=== PATIENT | female | born 1955 | race Caucasian/White ===

== ENCOUNTER 2019-12-16 10:43 | Outpatient (CLI) | payer MEDICARE, SELFPAY ==
--- NOTE | 2019-12-16 10:51 | XR_ITS ---
WS: [id number] PROCEDURE: XR chest 2V* [id number] CLINICAL INFORMATION: CURRENT SMOKER, ELEVATED WHITE BLOOD CELL COUNT COMPARISON: None. FINDINGS: Heart: Normal cardiac silhouette. Aortic calcification. Lungs: Lungs are clear. No consolidation or pleural fluid. No acute pulmonary infiltrates. Bones: Mild thoracic kyphosis. Mild thoracic curve. Osteopenia. XR/XR chest 2V* [id number] IMPRESSION: 1. Mild chronic emphysematous changes. No acute pulmonary infiltrates. 2. Mild thoracic curve with mild thoracic kyphosis. Osteopenia. 3. No acute chest findings.
== END 2019-12-16 10:44 | disposition home or self-care (01) ==
LOC: WPI 10:43
PROVIDERS: PCP Nurse Practitioner Family; Visit Provider Nurse Practitioner Family
DX: F17.200 Nicotine dependence, unspecified, uncomplicated (principal); D72.829 Elevated white blood cell count, unspecified; M85.89 Other specified disorders of bone density and structure, multiple sites
CPT/HCPCS: 71046

== ENCOUNTER 2020-01-01 08:25 | Day surgery (SDC) | payer MEDICARE, SELFPAY ==
[2019-12-30 14:47] VITALS: BMI 40.7
[2020-01-01 08:45] VITALS: BP 173/90; PULSE 77; RESP 18; TEMP 36.8; O2SAT 94
[2020-01-01] MEDS: sodium chloride 0.9% 1,000 ML 30 ML IV (08:57)
[2020-01-01 09:03] LABS: Glucose Point of Care 135 mg/dL (70-110)
--- NOTE | 2020-01-01 09:09 | W.PM.OPSUD ---
Surgery/Procedure H&P Update DATE OF PROCEDURE: January 01, 2020 DATE H&P PERFORMED: 12/16/19 H&P UPDATE INFORMATION: I have reviewed H&P completed within last 30 days, I have examined patient prior to procedure and No changes to prior documentation PREOP DIAGNOSIS: Screening colonoscopy PRIMARY INDICATION FOR PROCEDURE: The same PLANNED PROCEDURE: Operation Date: 01/01/20 09:30 Proposed Procedures p [id number]/Z12.11(Not Applicable) - Andrea Herrera MD
--- NOTE | 2020-01-01 09:13 | P.ANESASSM_ITS ---
Pre-Anesthetic Assessment Pre-Anesthetic Assessment: Height/Weight: Height 1.6 m Weight 104.326 kg Preop Diagnosis: Screening colonoscopy Proposed Procedure: Operation Date: 01/01/20 09:30 Proposed Procedures p [id number]/Z12.11(Not Applicable) - Andrea Herrera MD Was Beta Josie taken within 24 hours: N/A Last intake: Intake Last Liquid Date 12/31/19 Last Liquid Time 23:00 Last Solid Date 12/30/19 Last Solid Time 14:00 Social: Social History: Tobacco Exam: Pre-Anes Outpt Exam: alert, oriented x 3, clear to auscultation bilaterally and regular rate & rhythm Airway: Submandibular: WNL Cervical ROM: WNL MP: 2 Dentition: False History/ROS: No significant history except as noted and No significant compl aints Pulmonary: Pulmonary: None reported CV/HEM: CV/HEM: HTN : Comments: 1 functional kidney Hepatic: Hepatic: None reported GI: GI: None reported Metabolic: Metabolic: DM and Morbid obesity Musc/skel: Musc/skel: Lower Back Pain and OA/DJD Neuropsych: Neuropsych: None reported Anesthetic Plan: ASA status: 2 Anesthesia: MAC Meds/Allergies Current Medications: Current Medications Generic Name Dose Route Start Last Admin Trade Name Freq PRN Reason Stop Dose Admin Sodium Chloride 1,000 mls @ 30 ml s/hr 01/01/20 08:45 01/01/20 08:57 Sodium Chloride 0.9% IV 01/02/20 08:44 30 mls/hr .Q24H KITTY Administration PFSH Anesthesia PFSH: Medical History (Updated 12/16/19 @ 13:48 by Andrea Herrera MD) Anxiety Chronic neck and back pain Diabetes Hyperlipidemia Hypertension Insomnia Morbid obesity Surgical History H/O cystoscopy with kidney stone removal History of tonsillectomy Family History Father Cancer lung/brain Hypertension Denies family history of Anesthesia complication Bleeding disorder Social History Smoking and tobacco status: current every day smoker Alcohol intake: never Household members: spouse Marital status: Data Anesthesia Other Labs: Laboratory Results - last 48 hr 01/01/20 08:59 POC Glucose 135 Cardiac Studies: No Data to Display
--- NOTE | 2020-01-01 09:32 | SUR.OPER ---
clip placed at rectal polyp bx site
[2020-01-01 09:37] VITALS: BP 131/88; PULSE 68; RESP 16; TEMP 36.3; O2SAT 96
--- NOTE | 2020-01-01 09:40 | ANE.PACU2 ---
Inpatient post-anesthesia follow up: Airway intact: Yes Vital signs: Temperature Pulse Rate Respiratory Rate Blood Pressure Pulse Oximetry Oxygen Delivery Me thod Oxygen Flow Rate Fraction of Inspir ed Oxygen Hydration adequate: Yes Nausea and vomiting: No Mental status: Baseline
[2020-01-01 09:54] VITALS: BP 132/87; PULSE 66; RESP 18; O2SAT 94
== END 2020-01-01 10:15 | disposition home or self-care (01) ==
PROVIDERS: PCP Nurse Practitioner Family; Visit Provider Surgery
PROC: 0DJD8ZZ Inspection of Lower Intestinal Tract, Via Natural or Artificial Opening Endoscopic (ICD-10-PCS; CPT 45378; principal; 2020-01-01 09:30)
DX: Z12.11 Encounter for screening for malignant neoplasm of colon (principal); K62.1 Rectal polyp; I10 Essential (primary) hypertension; E11.9 Type 2 diabetes mellitus without complications; E66.01 Morbid (severe) obesity due to excess calories; Z68.41 Body mass index [BMI] 40.0-44.9, adult; M19.90 Unspecified osteoarthritis, unspecified site; E78.5 Hyperlipidemia, unspecified; F17.210 Nicotine dependence, cigarettes, uncomplicated
CPT/HCPCS: 12345; 36416; 45385; 82962; 88305; J2001; J2704; J7030

== ENCOUNTER 2020-01-09 13:53 | Outpatient (CLI) | payer MEDICARE, SELFPAY ==
--- NOTE | 2020-01-09 13:59 | MM_ITS ---
WS: [id number] BILATERAL SCREENING DIGITAL MAMMOGRAM WITH CAD HISTORY: SCREENING COMPARISON: None available. Bilateral CC and MLO views submitted. Computer aided detection analyzed. Breast composition: There are scattered areas of fibroglandular density. No suspicious masses, microc alcifications or architectural distortion. Benign round calcifications in the RIGHT breast. MM/[place] [id number] IMPRESSION: BI-RADS: 2-Benign FOLLOW UP: 1 Year Follow-up
== END 2020-01-09 13:54 | disposition home or self-care (01) ==
LOC: RADSHAW 13:57
PROVIDERS: PCP Nurse Practitioner Family; Visit Provider Nurse Practitioner Family
DX: Z12.31 Encounter for screening mammogram for malignant neoplasm of breast (principal)
CPT/HCPCS: 77067

== ENCOUNTER → 2020-02-26 06:27 | Day surgery (SDC) | payer MEDICARE, SELFPAY ==
[2020-02-24 13:44] VITALS: BMI 43.0
[2020-02-26 06:53] VITALS: BP 197/93; PULSE 82; RESP 18; TEMP 36.4; O2SAT 94
[2020-02-26] MEDS: sodium chloride 0.9% 1,000 ML 30 ML IV (06:55)
--- NOTE | 2020-02-26 06:56 | ANES.PREANE2 ---
Pre-Anesthetic Assessment Pre-Anesthetic Assessment: Height/Weight: Height 1.6 m Weight 110.223 kg Temp Pulse Resp BP Pulse Ox 97.6 F 82 18 197/93 94 02/26/20 06:53 02/26/20 06:53 02/26/20 06:53 02/26/20 06:53 02/26/20 06:53 Preop Diagnosis: Screening colonoscopy Proposed Procedure: Operation Date: 02/26/20 07:30 Proposed Procedures p Colonoscopy 23815 K63.5(Not Applicable) - Andrea Herrera MD Was Beta Josie taken within 24 hours: Yes Last intake: Intake Last Liquid Date 02/25/20 Last Liquid Time 23:30 Last Solid Date 02/24/20 Social: Social History: Tobacco and No alcohol Exam: Pre-Anes Outpt Exam: alert, oriented x 3, clear to auscultation bilaterally and regular rate & rhythm Airway: Submandibular: Other (Receeding mandible with limited TMD) Cervical ROM: WNL MP: 3 Additional comments: ec Pulmonary: Pulmonary: COPD and Cough CV/HEM: CV/HEM: HTN : : None reported Hepatic: Hepatic: None reported GI: GI: GERD Metabolic: Metabolic: DM Musc/skel: Musc/skel: None reported Neuropsych: Neuropsych: None reported Anesthetic Plan: ASA status: 3 Anesthesia: MAC Meds/Allergies Current Medications: Current Medications Generic Name Dose Route Start Last Admin Trade Name Freq PRN Reason Stop Dose Admin Sodium Chloride 1,000 mls @ 30 ml s/hr 02/26/20 06:45 02/26/20 06:55 Sodium Chloride 0.9% IV 02/27/20 06:44 30 mls/hr .Q24H KITTY Administration PFSH Anesthesia PFSH: Medical History Anxiety Chronic neck and back pain Diabetes Hyperlipidemia Hypertension Insomnia Morbid obesity Surgical History H/O cystoscopy with kidney stone removal History of tonsillectomy Family History Father Cancer lung/brain Hypertension Denies family history of Anesthesia complication Bleeding disorder Social History Smoking and tobacco status: current every day smoker Alcohol intake: never Household members: spouse Marital status: Data Anesthesia Cardiac Studies: No Data to Display
[2020-02-26 06:57] LABS: Glucose Point of Care 109 mg/dL (70-110)
--- NOTE | 2020-02-26 07:40 | P.HP_ITS ---
Same Day Surgery H&P Indication for Procedure/HPI DATE OF PROCEDURE: February 26, 2020 CHIEF COMPLAINT/INDICATIONFOR SURGICAL PROCEDURE: I am here for colonoscopy PREOP DIAGNOSIS: Screening colonoscopy PLANNED PROCEDRUE: Operation Date: 02/26/20 07:30 Proposed Procedures p Colonoscopy 40925 K63.5(Not Applicable) - Andrea Herrera MD This is a pleasant 64 years old female patient presented initially to my office for screening colonoscopy and we did a colonoscopy back in December yet the colon prep was suboptimal and smaller polyps could have been missed, patient was offered the option for a repeat colonoscopy and she decided to proceed accordingly ROS All systems have been reviewed negative except as per the above or per problem list Medications/Allergies* Home Medications Medication Instructions Recorded Confirmed Type acetaminophen 300 mg-codeine 60 mg 1 tab PO Q6H PRN 12/13/19 02/26/20 History tablet alprazolam 0.5 mg tablet 0.5 mg PO TID PRN 12/13/19 02/26/20 History carisoprodol 350 mg tablet 350 mg PO BID tab 12/13/19 02/26/20 History cholecalciferol (vitamin D3) 1,250 1 unit PO .weekly cap 12/13/19 02/26/20 History mcg (50,000 unit) capsule diltiazem HCl 360 mg 360 mg PO DAILY 12/13/19 02/26/20 History capsule,extended release 24 hr glipizide 5 mg tablet 5 mg PO BID 12/13/19 02/26/20 History insulin degludec 100 16 unit SUBCUT DIRECTED 12/13/19 02/26/20 History unit-liraglutide 3.6 mg/mL(3 mL) subcutaneous pen insulin degludec 100 unit/mL (3 40 unit SUBCUT DAILY ml 12/13/19 02/26/20 History mL) subcutaneous pen metformin 1,000 mg tablet 1,000 mg PO BID 12/13/19 02/26/20 History quinapril 40 mg tablet 40 mg PO DAILY 12/13/19 02/26/20 History simvastatin 40 mg tablet 40 mg PO DAILY 12/13/19 02/26/20 History zolpidem 10 mg tablet 10 mg PO ONCE PRN tab 12/13/19 02/26/20 History Allergies/Adverse Reactions Allergy/AdvReac Type Severity Reaction Status Date / Time No Known Allergies Allergy Verified 02/26/20 07:41 Current Medications: Generic Name Dose Route Start Last Admin Trade Name Rubenq PRN Reason Stop Dose Admin Sodium Chloride 1,000 mls @ 30 mls/hr 02/26/20 06:45 02/26/20 06:55 Sodium Chloride 0.9% IV 02/27/20 06:44 30 mls/hr .Q24H KITTY Administration Pertinent History/Comorbid Conditions* Medical History (Updated 01/01/20 @ 09:36 by Andrea Herrera MD) Anxiety Chronic neck and back pain Diabetes Hyperlipidemia Hypertension Insomnia Morbid obesity Surgical History (Updated 12/16/19 @ 13:46 by Andrea Herrera MD) H/O cystoscopy with kidney stone removal History of tonsillectomy Family History (Updated 12/16/19 @ 10:04 by KOLE Griffin) Cancer Father lung/brain Hypertension Father Denies family history of Anesthesia complication Bleeding disorder Social History Smoking and tobacco status: current every day smoker Alcohol intake: never Household members: spouse Marital status: Pertinent Exam Findings alert, oriented x 3, clear to auscultation bilaterally, regular rate & rhythm and procedure specific exam findings (Dominant examination nontender nondistended soft) Recommendations Surgery/Procedure today (Repeat screening colonoscopy today and informed consent per chart) Coding Level of Care Code Acute 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
[2020-02-26 08:15] VITALS: BP 96/71; PULSE 64; TEMP 36.1; O2SAT 94
--- NOTE | 2020-02-26 08:17 | ANE.PACU2 ---
Inpatient post-anesthesia follow up: Airway intact: Yes Vital signs: Temperature 97 F Pulse Rate 64 Respiratory Rate 18 Blood Pressure 96/71 Pulse Oximetry 94 Oxygen Delivery Me thod Room Air Oxygen Flow Rate Fraction of Inspir ed Oxygen Hydration adequate: Yes Nausea and vomiting: No Pain level: 1 Mental status: Baseline
[2020-02-26 08:29] VITALS: BP 143/72; PULSE 63; RESP 18; O2SAT 94
== END | disposition home or self-care (01) ==
PROVIDERS: PCP Nurse Practitioner Family; Visit Provider Surgery
PROC: 0DJD8ZZ Inspection of Lower Intestinal Tract, Via Natural or Artificial Opening Endoscopic (ICD-10-PCS; CPT 45378; principal; 2020-02-26 07:30)
DX: Z12.11 Encounter for screening for malignant neoplasm of colon (principal); K62.1 Rectal polyp; J44.9 Chronic obstructive pulmonary disease, unspecified; I10 Essential (primary) hypertension; K21.9 Gastro-esophageal reflux disease without esophagitis; E11.9 Type 2 diabetes mellitus without complications; E78.5 Hyperlipidemia, unspecified; E66.01 Morbid (severe) obesity due to excess calories; F17.200 Nicotine dependence, unspecified, uncomplicated; Z86.010 Personal history of colon polyps; Z68.41 Body mass index [BMI] 40.0-44.9, adult; Z79.4 Long term (current) use of insulin
CPT/HCPCS: 12345; 36416; 45385; 82962; 88305; J2704; J7030

== ENCOUNTER 2020-03-20 08:26 | Outpatient (CLI) | payer MEDICARE, SELFPAY ==
--- NOTE | 2020-03-20 08:41 | US_ITS ---
WS: [id number] RIGHT UPPER QUADRANT ULTRASOUND HISTORY: RUQ ABD PAIN COMPARISON: None available. Liver: 20.0 cm in length. Moderately enlarged liver with mild hepatic steatosis. No mass or bile duct dilatation. Gallbladder: Normally distended gallbladder with no stones or wall thickening. CBD: 0.4 cm Pancreas: Not visualized. Right kidney: 9.7 cm in length. Low normal size of the kidney. Severe cortical atrophy, thinning and increased echogenicity. No hydronephrosis or mass. Possible cyst from the upper pole with a maximum d iameter of 1.5 cm. Aorta and IVC: Unremarkable abdominal aorta and IVC. No ascites. US/US abdomen limited 72166 IMPRESSION: 1. Moderate hepatomegaly and hepatic steatosis. Surface of the liver slightly irregular suggesting cirrhosis. 2. Negative gallbladder. 3. Severe cortical thinning RIGHT kidney with chronic medical renal disease.
== END 2020-03-20 08:27 | disposition home or self-care (01) ==
LOC: US 08:28
PROVIDERS: PCP Nurse Practitioner Family; Visit Provider Nurse Practitioner Family
DX: R10.11 Right upper quadrant pain; R16.0 Hepatomegaly, not elsewhere classified; K76.0 Fatty (change of) liver, not elsewhere classified; N18.9 Chronic kidney disease, unspecified
CPT/HCPCS: 76705

== ENCOUNTER → 2021-03-17 09:53 | Outpatient (BNVA) | payer MEDICARE, SELFPAY | PROVIDERS: PCP Nurse Practitioner Family; Referring Provider Nurse Practitioner Family; Visit Provider Anesthesiology Pain Medicine | DX: G89.29 Other chronic pain (principal); M51.17 Intervertebral disc disorders with radiculopathy, lumbosacral region; M47.816 Spondylosis without myelopathy or radiculopathy, lumbar region; M25.551 Pain in right hip; M25.552 Pain in left hip; M54.2 Cervicalgia; F17.210 Nicotine dependence, cigarettes, uncomplicated; Z79.891 Long term (current) use of opiate analgesic | CPT/HCPCS: 99204 ==

== ENCOUNTER → 2021-04-02 10:39 | Outpatient (BNVA) | payer MEDICARE, SELFPAY | PROVIDERS: PCP Nurse Practitioner Family; Visit Provider Anesthesiology Pain Medicine | DX: G89.29 Other chronic pain (principal); M47.816 Spondylosis without myelopathy or radiculopathy, lumbar region; M54.2 Cervicalgia | CPT/HCPCS: 72110; 99213 ==

== ENCOUNTER 2021-04-02 11:17 | Outpatient (CLI) | payer MEDICARE, SELFPAY ==
--- NOTE | 2021-04-02 11:43 | XR_ITS ---
WS: [id number] LUMBAR SPINE TECHNIQUE: 5 views of the lumbar spine CLINICAL INFORMATION: M47.816 - Spondylosis without myelopathy or radiculopathy... COMPARISON: None. FINDINGS: Five fax-ful-wyiocsk lumbar vertebral bodies. Grade 1 anterolisthesis L4 on L5 measuring 6.3 mm. Disc space narrowing worse at L5-S1. Suggestion of bilateral pars defects with sclerosis L5-S1. Disc spac e narrowing worse at L4-L5 and L5-S1. Aortic calcification. Disc space heights are otherwise well pre served. No compression fractures. XR/XR lumbar spine min 4V 55085 IMPRESSION: 1. Grade 1 anterolisthesis L4 on L5 measuring 6.3 mm. 2. Disc space narrowing worse L4-L5 and L5-S1. 3. No acute compression fractures. 4. Suggestion of bilateral pars defects L5-S1 with sclerosis.
== END 2021-04-02 11:18 | disposition home or self-care (01) ==
PROVIDERS: PCP Nurse Practitioner Family; Visit Provider Anesthesiology Pain Medicine
DX: M47.816 Spondylosis without myelopathy or radiculopathy, lumbar region (principal)
CPT/HCPCS: 72110

== ENCOUNTER → 2021-05-03 11:07 | Outpatient (BNVA) | payer MEDICARE, SELFPAY | PROVIDERS: PCP Nurse Practitioner Family; Visit Provider Anesthesiology Pain Medicine | DX: G89.29 Other chronic pain (principal); M54.2 Cervicalgia; M47.816 Spondylosis without myelopathy or radiculopathy, lumbar region | CPT/HCPCS: 99213; 99214 ==

== ENCOUNTER 2024-01-29 12:28 | Emergency (ER) | payer MEDICARE, SELFPAY ==
[2024-01-29 12:41] VITALS: BP 121/75; PULSE 90; RESP 17; TEMP 36.7; O2SAT 94; BMI 43.7
[2024-01-29 12:58] LABS: Basophils # 0.1 10^3/uL (0.0-0.1); Basophils % 0.4 %; Eosinophils % 0.3 %; Hematocrit 48.2 % (36-47); Lymphocytes # 4.2 10^3/uL (0.8-4.8); Lymphocytes % 36.5 %; Mean Corpuscular HGB Conc 32.6 g/dL (30-55); Mean Corpuscular Hemoglobin 29.8 pg (27-33); Mean Corpuscular Volume 91.6 fl (85-98); Mean Platelet Volume 9.5 fL (7.4-10.4); Monocytes # 0.5 10^3/uL (0.2-0.9); Neutrophils # 6.66 10^3/uL (1.8-7.7); Neutrophils % 58.5 %; Nucleated Red Blood Cells % 0 %; Platelet Count 325 10^3/cmm (157-399); Red Blood Count 5.26 10^6/uL (3.85-5.65); Red Cell Distribution Width 13.6 % (12.1-15.1); White Blood Count 11.37 10^3/uL (3.29-11.43)
[2024-01-29] MEDS: sodium chloride 0.9% 1,000 ML 999 ML IV (13:11)
[2024-01-29] MEDS: ondansetron 2 mg/ML SDV 2 mL 4 MG IVP (13:11)
--- NOTE | 2024-01-29 13:11 | W.ED.NAVMDI ---
HPI - Nausea/Vomiting/Diarrhea General: Chief complaint: Nausea/Vomiting/Diarrhea Stated complaint: N/V/D Time Seen by Provider: 01/29/24 12:57 Source: patient Mode of arrival: ambulatory Limitations: no limitations History of Present Illness: 68-year-old female states she has been having nausea vomiting for the last 4 days states not been able to tolerate any p.o. with multiple episodes of vomiting. States she had some abdominal cramping denies any severe abdominal pain. She has had some slight diarrhea patient denies any fevers denies any worsening improving factors. Associated nausea: Yes Associated symtoms: Reports nausea; Denies chest pain, dysuria or headache(s) Review of Systems Const: Denies: fever(s), chills, body aches or change in appetite ENMT: Denies: throat pain or dental pain Card: Denies: chest pain Resp: Denies: dyspnea GI: Reports: abdominal pain, nausea, vomiting and diarrhea : Denies: dysuria Musc: Denies: neck pain or back pain Skin/Breast: Denies: rash Neuro: Denies: headache(s) PFSH ED PFSH: Medical History (Updated 01/29/24 @ 15:42 by Saritha Charles MD) Morbid obesity Diabetes Anxiety Chronic neck and back pain Ordering Provider/Ordering MD: Buck No MD Date of Service: 04/02/21 Procedure(s): XR lumbar spine min 4V 91249 Accession Number(s): [id number] Report Number: [id number] WS: [id number] LUMBAR SPINE TECHNIQUE: 5 views of the lumbar spine CLINICAL INFORMATION: M47.816 - Spondylosis without myelopathy or radiculopathy... COMPARISON: None. FINDINGS: Five lzl-ypl-zeqview lumbar vertebral bodies. Grade 1 anterolisthesis L4 on L5 measuring 6.3 mm. Disc space narrowing worse at L5-S1. Suggestion of bilateral pars defects with sclerosis L5-S1. Disc space narrowing worse at L4-L5 and L5-S1. Aortic calcification. Disc space heights are otherwise well preserved. No compression fractures. XR/XR lumbar spine min 4V 04997 IMPRESSION: 1. Grade 1 anterolisthesis L4 on L5 measuring 6.3 mm. 2. Disc space narrowing worse L4-L5 and L5-S1. 3. No acute compression fractures. 4. Suggestion of bilateral pars defects L5-S1 with sclerosis. Dictated By:Darwin Dave MDSigned By:Darwin Dave MDSigned Date/Time:04/02/21 1316DD/ 1307 Insomnia Hypertension Hyperlipidemia Surgical History History of tonsillectomy H/O cystoscopy with kidney stone removal Family History Father Cancer lung/brain Hypertension Denies family history of Anesthesia complication Bleeding disorder Social History Alcohol intake: never Substance/Drug Use: never Household members: spouse Marital status: Physical Exam Const: COMMON NORMALS: no acute distress, patient oriented x3 and healthy appearing HENMT: COMMON NORMALS: normocephalic and atraumatic HEAD & SCALP: normocephalic and atraumatic Eye: COMMON NORMALS: conjunctivae normal CONJUNCTIVA: Yes conjunctivae normal Neck/C-Spine: COMMON NORMALS: full ROM and supple Chest: COMMONS NORMALS: normal inspection of the chest and normal palpation of entire chest wall Resp: COMMON NORMALS: normal respiratory effort, No retractions, No use of accessory muscles and clear to auscultation bilaterally AUSCULTATION: clear to auscultation bilaterally Cardio: COMMON NORMALS: regular rate, regular rhythm and No murmurs present (Cardio) RATE: regular rate RHYTHM: regular rhythm GI: COMMON NORMALS: Normal to inspection, nondistended, normoactive bowel sounds present, Soft to palpation, non-tender and no masses PALPATION: Yes Soft to palpation Extremity: COMMON NORMALS: normal to inspection and full ROM Neuro: COMMON NORMALS: patient oriented x3, moves all extremities and no focal motor deficits Psych: COMMON NORMALS: mental status grossly normal, Normal thought process present and cooperative THOUGHT PROCESS: Normal thought process present Skin: COMMON NORMALS: no rashes or lesions noted and no wounds GENERAL SKIN EXAM: no rashes or lesions noted Course Vital Signs: Vital signs: Vital Signs Temperature 98.0 F 01/29/24 12:41 Pulse Rate 78 01/29/24 15:06 Respiratory Rate 18 01/29/24 15:06 Blood Pressure 149/76 01/29/24 15:06 Pulse Oximetry 92 01/29/24 15:06 Oxygen Delivery Me thod Room Air 01/29/24 15:06 Oxygen Flow Rate 2 01/29/24 14:10 MDM - Nausea/Vomiting/Diarrhea Medical Decision Making Patient presents with nausea vomiting she has acute cystitis likely pyelonephritis she has been able to tolerate p.o. here she has no signs of sepsis we will start her on nausea medicine along with antibiotics she is follow-up with PCP and return if worsening she understands agrees to plan. Medical Records I reviewed the patient's medical records. Lab Data I reviewed the patient's lab results. 01/29/24 12:51 01/29/24 12:51 Radiology Impressions Chest X-Ray 01/29/24 13:24 IMPRESSION: No acute findings. Abdomen/Pelvis CT 01/29/24 14:28 IMPRESSION: 1. No hydronephrosis in either kidney. 2. Mild perinephric stranding about the LEFT kidney suspicious for pyelonephritis. No hydronephrosis. Recommend correlation for UTI. 3. Mild diffuse bladder wall thickening. Bladder is decompressed. Correlation for cystitis. 4. Normal sigmoid colon. Colon is normal in appearance. 5. No evidence of small or large bowel obstruction. 6. Prior cholecystectomy. 7. No other acute findings. Laboratory Results WBC 11.37 10^3/uL (3.29-11.43) 01/29/24 12:51 RBC 5.26 10^6/uL (3.85-5.65) 01/29/24 12:51 Hgb 15.70 g/dL (11.27-16.99) 01/29/24 12:51 Hct 48.2 % (36-47) H 01/29/24 12:51 MCV 91.6 fl (85-98) 01/29/24 12:51 MCH 29.8 pg (27-33) 01/29/24 12:51 MCHC 32.6 g/dL (30-55) 01/29/24 12:51 RDW 13.6 % (12.1-15.1) 01/29/24 12:51 Plt Count 325 10^3/cmm (157-399) 01/29/24 12:51 MPV 9.5 fL (7.4-10.4) 01/29/24 12:51 Neut % (Auto) 58.5 % 01/29/24 12:51 Lymph % (Auto) 36.5 % 01/29/24 12:51 [place] % (Auto) 4.0 % 01/29/24 12:51 Eos % (Auto) 0.3 % 01/29/24 12:51 Baso % (Auto) 0.4 % 01/29/24 12:51 Neut # (Auto) 6.66 10^3/uL (1.8-7.7) 01/29/24 12:51 Lymph # (Auto) 4.2 10^3/uL (0.8-4.8) 01/29/24 12:51 [place] # (Auto) 0.5 10^3/uL (0.2-0.9) 01/29/24 12:51 Eos # (Auto) 0.0 10^3/uL (0.0-0.8) 01/29/24 12:51 Baso # (Auto) 0.1 10^3/uL (0.0-0.1) 01/29/24 12:51 Nucleated RBC % (auto) 0 % 01/29/24 12:51 Nucleated RBCs # 0.0 /100WBC 01/29/24 12:51 Sodium 142 mmol/L (136-145) 01/29/24 12:51 Potassium 4.4 mmol/L (3.5-5.1) 01/29/24 12:51 Chloride 104 mmol/L (98-107) 01/29/24 12:51 Carbon Dioxide 22 mmol/L (22-29) 01/29/24 12:51 Anion Gap 20.4 (5-19) H 01/29/24 12:51 BUN 20 mg/dL (8-23) 01/29/24 12:51 Creatinine 1.4 mg/dL (0.5-0.9) H 01/29/24 12:51 GFR Calculation 37.4 mL/min (90-130) L 01/29/24 12:51 Glucose 105 mg/dL (65-115) 01/29/24 12:51 Calculated Osmolality 297 mOsm/kg (285-295) H 01/29/24 12:51 Calcium 9.7 mg/dL (8.5-10.5) 01/29/24 12:51 Total Bilirubin 0.4 mg/dL (0.15-1.2) 01/29/24 12:51 AST 31 U/L (0-32) 01/29/24 12:51 ALT 24 U/L (0-33) 01/29/24 12:51 Alkaline Phosphatase 99 U/L (35-105) 01/29/24 12:51 Total Protein 8.0 g/dL (6.6-8.7) 01/29/24 12:51 Albumin 4.4 g/dL (3.5-5.2) 01/29/24 12:51 Globulin 3.6 g/dL (1.3-4.6) 01/29/24 12:51 Lipase 22 U/L (13-60) 01/29/24 12:51 Urine Color Dark yellow (Yellow) A 01/29/24 14:08 Urine Appearance Cloudy (CLEAR) A 01/29/24 14:08 Urine pH 5 (5-7) 01/29/24 14:08 Ur Specific [place] 1.020 (1.005-1.030) 01/29/24 14:08 Urine Protein 2+ (Negative) H 01/29/24 14:08 Urine Glucose (UA) 4+ (Normal) H 01/29/24 14:08 Urine Ketones Negative (Negative) 01/29/24 14:08 Urine Blood 2+ (Negative) H 01/29/24 14:08 Urine Nitrate Positive (Negative) A 01/29/24 14:08 Urine Bilirubin 1+ (Negative) H 01/29/24 14:08 Urine Urobilinogen 1 mg/dL (Negative) H 01/29/24 14:08 Ur Leukocyte Esterase 2+ (Negative) H 01/29/24 14:08 Urine RBC 10-15 /hpf (0-2) H 01/29/24 14:08 Urine WBC Too numerous to cnt /hpf (0-5) H 01/29/24 14:08 Ur Squamous Epith Cells 5-10 /hpf (0-5) H 01/29/24 14:08 Amorphous Sediment Not Reportable 01/29/24 14:08 Urine Bacteria 1+ /hpf (NONE) H 01/29/24 14:08 All radiology interpretation(s) finalized by discharge Discharge Plan Discharge Patient Disposition: Home Clinical Impression: Acute pyelonephritis, Vomiting Condition: Stable Prescriptions: New Cipro 500 mg tablet 500 mg PO BID Qty: 14 0RF ondansetron 4 mg tablet,disintegrating 4 mg PO Q6H PRN (Reason: nausea and vomiting) Qty: 14 0RF No Action acetaminophen-codeine 300-60 mg tablet 1 tab PO Q6H PRN (Reason: Pain) Tresiba FlexTouch U-100 100 unit/mL (3 mL) insulin pen 40 unit SUBCUT DAILY zolpidem [Ambien] 10 mg tablet 10 mg PO ONCE PRN (Reason: insomnia) Xultophy 100/3.6 100 unit-3.6 mg /mL (3 mL) insulin pen 16 unit SUBCUT DIRECTED glipizide 5 mg tablet 5 mg PO BID metformin 1,000 mg tablet 1,000 mg PO BID simvastatin 40 mg tablet 40 mg PO DAILY carisoprodol [Soma] 350 mg tablet 350 mg PO BID alprazolam 0.5 mg tablet 0.5 mg PO TID PRN (Reason: Anxiety) diltiazem HCl [Cardizem CD] 360 mg capsule,extended release 24hr 360 mg PO DAILY cholecalciferol (vitamin D3) 1,250 mcg (50,000 unit) capsule 1 unit PO .weekly quinapril 40 mg tablet 40 mg PO DAILY gabapentin 100 mg capsule 100 mg PO BID Qty: 60 0RF lactulose 10 gram/15 mL solution 10 gm PO BID 7 Days Qty: 210 0RF Discharge Orders: Discharge ED (Routine); Ordered 01/29/24 Ordered By: Saritha Charles Referrals: Johnna Rod [Primary Care Provider] - 1-3 days Discharge Diet: Advance as tolerated Discharge Activity: Resume usual activity Patient Instructions: Kidney Infection (ED), Acute Nausea and Vomiting (ED) Coding Level of Care Code ED 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
[2024-01-29 13:16] LABS: Alanine Aminotransferase 24 U/L (0-33); Albumin Level 4.4 g/dL (3.5-5.2); Alkaline Phosphatase 99 U/L (35-105); Anion Gap 20.4 (5-19); Aspartate Amino Transferase 31 U/L (0-32); Blood Urea Nitrogen 20 mg/dL (8-23); Calcium 9.7 mg/dL (8.5-10.5); Carbon Dioxide 22 mmol/L (22-29); Chloride 104 mmol/L (98-107); Creatinine Clr Calc Pharmacy 46.2976; Globulin 3.6 g/dL (1.3-4.6); Glomerular Filtration Rate 37.4 mL/min (90-130); Glucose 105 mg/dL (65-115); Lipase 22 U/L (13-60); Osmolality Calculated 297 mOsm/kg (285-295); Potassium 4.4 mmol/L (3.5-5.1); Sodium 142 mmol/L (136-145); Total Bilirubin 0.4 mg/dL (0.15-1.2)
--- NOTE | 2024-01-29 13:24 | XRR_ITS ---
PROCEDURE INFORMATION: Exam: XR Chest Exam date and time: 01/29/2024 1:32 PM Age: 68 years old Clinical indication: Other: N/v/d; Additional info: Vomiting TECHNIQUE: Imaging protocol: Radiologic exam of the chest. Views: 1 view. COMPARISON: CR XR chest 2V* [id number] 12/16/2019 10:58 AM FINDINGS: Lungs: Unremarkable. No consolidation. Pleural spaces: Unremarkable. No pleural effusion. No pneumothorax. Heart/Mediastinum: Unremarkable. No cardiomegaly. Bones/joints: Unremarkable. XR/XR chest 1V portable [id number] IMPRESSION: No acute findings.
--- NOTE | 2024-01-29 13:24 | ECG_ITS ---
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 Measurements Intervals Wheeler Rate: 73 P: 29 IN: 156 QRS: 33 QRSD: 143 T: 22 QT: 411 QTc: 456 Interpretive Statements SINUS RHYTHM RIGHT BUNDLE BRANCH BLOCK [120+ ms QRS DURATION, UPRIGHT V1, 40+ ms S IN I/aVL/V4/V5/V6] No previous ECG available for comparison Electronically Signed On 01-29-2024 16:26:55 CDT by Wing Camacho M.D. [id number]
[2024-01-29 14:10] VITALS: BP 130/71; PULSE 80; O2SAT 92
--- NOTE | 2024-01-29 14:19 | PC.NURSE ---
Charge nurse Kell saravia placed pt on oxygen 2lnc as she desats to 86% while sleeping.
[2024-01-29] MEDS: sodium chloride 0.9% 500 ML 999 ML IV (14:22)
[2024-01-29 14:24] LABS: Urine Appearance Cloudy (CLEAR); Urine Color Dark Yellow (Yellow); pH Urine 5 (5-7)
[2024-01-29 14:25] LABS: Blood Urine 2+ (Negative); Glucose Urine UA 4+ (Normal); Ketones Urine Negative (Negative); Nitrate Urine Positive (Negative); Protein Urine 2+ (Negative)
[2024-01-29 14:26] LABS: Add Urine Microscopic? YES; Bacteria Urine 1+ /hpf; Bilirubin Urine 1+ (Negative); Leukocyte Esterase Urine 2+ (Negative); Urobilinogen Urine 1 mg/dL (Negative); WBC Urine TOO NUMEROUS TO CNT /hpf (0-5)
[2024-01-29 14:27] LABS: Add Urine Culture? Yes
--- NOTE | 2024-01-29 14:28 | CT_ITS ---
WS: [id number] CT ABDOMEN PELVIS TECHNIQUE: Noncontrast CT of the abdomen and pelvis with coronal and sagittal reformatted images. CLINICAL INFORMATION: flank pain COMPARISON: None. DLP: 1126.[address] scans at [facility] use at least one of these dose optimization techniques: automated e xposure control; mA and/or kV adjustment per patient size (includes targeted exams where dose is matc hed to clinical indication); or iterative reconstruction. FINDINGS: Atrophic RIGHT kidney. Lobulated somewhat enlarged LEFT kidney with perinephric stranding suspicious for pyelonephritis. This also can be seen with renal insufficiency. No hydronephrosis in the LEFT kid cristian. No visualized obstructing renal or ureteral calculi. Mild bladder wall thickening. Bladder is de compressed. Small cystocele. Correlation for cystitis. Normal sigmoid colon. Colon is otherwise normal in appearance. No evidence of small or large bowel ob struction. Nodular thickening LEFT adrenal gland. RIGHT adrenal gland is normal. Prior cholecystectom y. Normal noncontrast pancreas. Normal noncontrast liver. Tiny esophageal hernia. Lung bases are well aerated. Advanced degenerative arthritis RIGHT hip. CT/CT kidney stone [id number] IMPRESSION: 1. No hydronephrosis in either kidney. 2. Mild perinephric stranding about the LEFT kidney suspicious for pyelonephri tis. No hydronephrosis. Recommend correlation for UTI. 3. Mild diffuse bladder wall thickening. Bladder is decompressed. Correlation for cystitis. 4. Normal sigmoid colon. Colon is normal in appearance. 5. No evidence of small or large bowel obstruction. 6. Prior cholecystectomy. 7. No other acute findings.
[2024-01-29] MEDS: cefTRIAXone 1,000 mg SDV 1000 MG IVP (15:05)
[2024-01-29 15:06] VITALS: BP 149/76; PULSE 78; RESP 18; O2SAT 92
[2024-01-29 16:19] VITALS: BP 127/60; PULSE 87; RESP 18; O2SAT 95
== END 2024-01-29 16:21 | disposition home or self-care (01) ==
PROVIDERS: Physician Assistant; Emergency Provider Emergency Medicine; PCP Nurse Practitioner Family
DX: N10 Acute pyelonephritis (principal); R11.11 Vomiting without nausea; Z79.4 Long term (current) use of insulin; Z79.84 Long term (current) use of oral hypoglycemic drugs; E11.9 Type 2 diabetes mellitus without complications; I10 Essential (primary) hypertension; E78.5 Hyperlipidemia, unspecified
CPT/HCPCS: 36415; 71045; 74176; 80053; 81001; 83690; 85025; 87086; 87186; 93005; 96361; 96374; 96375; 99285; J0696; J2405; J7030; J7040

== ENCOUNTER → 2024-03-07 14:59 | Outpatient (BNVA) | payer MEDICARE, SELFPAY | PROVIDERS: PCP Nurse Practitioner Family; Visit Provider Physician Assistant | DX: M16.11 Unilateral primary osteoarthritis, right hip | CPT/HCPCS: 73502; 99213 ==

== ENCOUNTER → 2024-04-12 09:04 | Outpatient (BNVA) | payer MEDICARE, SELFPAY | PROVIDERS: PCP Nurse Practitioner Family; Visit Provider Student in an Organized Health Care Education/Training Program | DX: M16.11 Unilateral primary osteoarthritis, right hip (principal) | CPT/HCPCS: 20610; 77002; J3301 ==

== ENCOUNTER → 2024-07-16 09:34 | Outpatient (BNVA) | payer MEDICARE, SELFPAY | PROVIDERS: PCP Nurse Practitioner Family; Visit Provider Student in an Organized Health Care Education/Training Program | DX: Z01.818 Encounter for other preprocedural examination (principal); M16.11 Unilateral primary osteoarthritis, right hip; E11.9 Type 2 diabetes mellitus without complications | CPT/HCPCS: 99214 ==

== ENCOUNTER 2024-07-30 11:05 | Outpatient (CLI) | payer MEDICARE, SELFPAY ==
--- NOTE | 2024-07-30 11:00 | CT_ITS ---
WS: [id number] CT RIGHT HIP, noncontrast HISTORY: ARTHRITIS RIGHT HIP TECHNIQUE: Protocol for ZOE total hip replacement has been obtained. This includes axial imaging thr ough the LEFT hip AND LEFT KNEE. DLP: 856.12 mGy COMPARISON: Radiograph 03/07/2024 Severe joint space narrowing involving the RIGHT hip. Subchondral cystic changes with sclerosis invol ving the femoral head and acetabulum. Mild remodeling of the acetabulum. No fracture. Circumferential plaque in the abdominal aorta extending into the iliac arteries. RIGHT knee: Mild joint space narrowing. No fractures. No suprapatellar effusion. Muscle atrophy. CT/CT hip RT [facility] [id number] IMPRESSION: CT imaging provided for [facility] robotic total RIGHT HIP replacement.
== END 2024-07-30 11:06 | disposition home or self-care (01) ==
LOC: RAD 11:06
PROVIDERS: PCP Nurse Practitioner Family; Visit Provider Student in an Organized Health Care Education/Training Program
DX: M16.11 Unilateral primary osteoarthritis, right hip (principal); I70.0 Atherosclerosis of aorta; R93.7 Abnormal findings on diagnostic imaging of other parts of musculoskeletal system; R93.6 Abnormal findings on diagnostic imaging of limbs
CPT/HCPCS: 73700

== ENCOUNTER 2024-08-08 10:55 | Outpatient (CLI) | payer MEDICARE, SELFPAY ==
[2024-08-08 11:23] LABS: Basophils # 0.1 10^3/uL (0.0-0.1); Basophils % 0.5 %; Eosinophils # 0.1 10^3/uL (0.0-0.8); Hematocrit 44.1 % (36-47); Lymphocytes # 4.8 10^3/uL (0.8-4.8); Lymphocytes % 41.9 %; Mean Corpuscular HGB Conc 32.2 g/dL (30-55); Mean Corpuscular Hemoglobin 30.9 pg (27-33); Mean Corpuscular Volume 96.1 fl (85-98); Mean Platelet Volume 9.6 fL (7.4-10.4); Monocytes # 0.5 10^3/uL (0.2-0.9); Monocytes % 4.2 %; Neutrophils # 6.03 10^3/uL (1.8-7.7); Neutrophils % 52.1 %; Nucleated Red Blood Cells % 0 %; Platelet Count 323 10^3/cmm (157-399); Red Blood Count 4.59 10^6/uL (3.85-5.65); Red Cell Distribution Width 12.4 % (12.1-15.1); White Blood Count 11.54 10^3/uL (3.29-11.43)
[2024-08-08 11:27] LABS: Bilirubin Urine Negative (Negative); Blood Urine Negative (Negative); Glucose Urine UA Negative (Normal); Ketones Urine Trace (Negative); Leukocyte Esterase Urine 2+ (Negative); Nitrate Urine Positive (Negative); Protein Urine 1+ (Negative); Specific Gravity, Urine 1.016 (1.005-1.030); Urine Appearance Cloudy (CLEAR); Urine Color Yellow (Yellow); pH Urine 5.5 (5-7)
[2024-08-08 11:36] LABS: Add Urine Microscopic? YES; Bacteria Urine 4+ /hpf; Hyaline Casts Urine 20.67 /lpf; RBC Urine 0-2 /hpf (0-2); WBC Urine >100 /hpf (0-5)
[2024-08-08 11:45] LABS: Alanine Aminotransferase 16 U/L (0-33); Albumin Level 4.4 g/dL (3.5-5.2); Alkaline Phosphatase 93 U/L (35-105); Aspartate Amino Transferase 26 U/L (0-32); Blood Urea Nitrogen 15 mg/dL (8-23); Calcium 10.1 mg/dL (8.5-10.5); Carbon Dioxide 27 mmol/L (22-29); Chloride 100 mmol/L (98-107); Globulin 3.3 g/dL (1.3-4.6); Glomerular Filtration Rate 71.1 mL/min (90-130); Glucose 49 mg/dL (65-115); Osmolality Calculated 286 mOsm/kg (285-295); Sodium 139 mmol/L (136-145); Total Bilirubin 0.3 mg/dL (0.15-1.2); Total Protein 7.7 g/dL (6.6-8.7)
[2024-08-08 12:05] LABS: UA Slide Review UA Slide Review Perf
[2024-08-08 12:08] LABS: Add Urine Culture? Yes
== END 2024-08-08 10:56 | disposition home or self-care (01) ==
LOC: LAB 10:57
PROVIDERS: PCP Nurse Practitioner Family; Visit Provider Student in an Organized Health Care Education/Training Program
DX: Z01.818 Encounter for other preprocedural examination (principal)
CPT/HCPCS: 36415; 80053; 80323; 81001; 85025; 87086

== ENCOUNTER → 2024-08-13 09:00 | Outpatient (BNVA) | payer MEDICARE, SELFPAY | PROVIDERS: PCP Nurse Practitioner Family; Visit Provider Family Medicine | DX: Z01.818 Encounter for other preprocedural examination (principal); M16.11 Unilateral primary osteoarthritis, right hip | CPT/HCPCS: 93005 ==

== ENCOUNTER → 2024-08-22 14:50 | Outpatient (BNVA) | payer MEDICARE, SELFPAY | PROVIDERS: PCP Nurse Practitioner Family; Referring Provider Family Medicine; Visit Provider Family Medicine | DX: Z01.818 Encounter for other preprocedural examination (principal) | CPT/HCPCS: 81003; 87086 ==

== ENCOUNTER 2024-08-30 14:49 | Outpatient (CLI) | payer MEDICARE, SELFPAY ==
[2024-08-30 15:45] LABS: Bilirubin Urine Negative (Negative); Blood Urine Negative (Negative); Glucose Urine UA Negative (Normal); Ketones Urine Trace (Negative); Leukocyte Esterase Urine 1+ (Negative); Nitrate Urine Negative (Negative); Protein Urine Trace (Negative); Specific Gravity, Urine 1.012 (1.005-1.030); Urine Appearance Clear (CLEAR); Urine Color Yellow (Yellow); Urobilinogen Urine 0.2 mg/dL (Negative); pH Urine 5.5 (5-7)
[2024-08-30 16:01] LABS: Bacteria Urine 1+ /hpf; Hyaline Casts Urine 0-4 /lpf; RBC Urine 0-4 /hpf (0-2); Squamous Epithelial Cell Urine 15-25 /hpf (0-5); WBC Urine 25-40 /hpf (0-5)
[2024-08-30 16:39] LABS: Estmated Average Glucose 100; Hemoglobin A1C 5.1 % (4.0-6.0)
== END 2024-08-30 14:50 | disposition home or self-care (01) ==
PROVIDERS: Family Provider Student in an Organized Health Care Education/Training Program; PCP Nurse Practitioner Family; Visit Provider Family Medicine
DX: Z01.818 Encounter for other preprocedural examination (principal)
CPT/HCPCS: 36415; 81001; 83036

== ENCOUNTER 2024-09-13 15:15 | Outpatient (CLI) | payer MEDICARE, SELFPAY ==
--- NOTE | 2024-09-13 15:30 | CT_ITS ---
WS: [id number] CT RIGHT hip for ZOE procedure HISTORY: M16.11 - Unilateral primary osteoarthritis, right hip Date: 09/13/2024 3:19 PM TECHNIQUE: Protocol for ZOE total hip replacement has been obtained. This includes axial imaging from the hip joint through the knee joint. DLP: 685 FINDINGS: Osteopenia. Advanced degenerative arthritis RIGHT hip with [id number] articulation. Associated subchondral sclerosis and cystic change in the femoral head and acetabulum. Flattening of the RIGHT femoral head. Moderate to advanced degenerative arthritis LEFT hip. Vascular calcification. Advanced facet arthropathy lower lumbar spine. CT/CT hip RT [facility] [id number] IMPRESSION: CT imaging provided for [facility] robotic total hip replacement.
== END 2024-09-13 15:16 | disposition home or self-care (01) ==
PROVIDERS: Family Provider Student in an Organized Health Care Education/Training Program; PCP Nurse Practitioner Family; Visit Provider Student in an Organized Health Care Education/Training Program
DX: M16.0 Bilateral primary osteoarthritis of hip (principal); M85.80 Other specified disorders of bone density and structure, unspecified site; R93.7 Abnormal findings on diagnostic imaging of other parts of musculoskeletal system; I70.90 Unspecified atherosclerosis; M47.896 Other spondylosis, lumbar region
CPT/HCPCS: 73700

== ENCOUNTER → 2024-09-16 09:08 | Outpatient (BNVA) | payer MEDICARE, SELFPAY | PROVIDERS: Family Provider Student in an Organized Health Care Education/Training Program; PCP Nurse Practitioner Family; Visit Provider Family Medicine | DX: Z01.818 Encounter for other preprocedural examination (principal) | CPT/HCPCS: 80053; 81003; 85025; 87077; 87086; 87184 ==

== ENCOUNTER → 2024-11-13 09:57 | Outpatient (BNVA) | payer MEDICARE, SELFPAY | PROVIDERS: Family Provider Student in an Organized Health Care Education/Training Program; PCP Nurse Practitioner Family; Visit Provider Physician Assistant | DX: M16.11 Unilateral primary osteoarthritis, right hip (principal) | CPT/HCPCS: 99214 ==

== ENCOUNTER → 2024-12-09 12:52 | Outpatient (BNVA) | payer MEDICARE, SELFPAY | PROVIDERS: Family Provider Student in an Organized Health Care Education/Training Program; PCP Nurse Practitioner Family; Visit Provider Family Medicine | DX: Z01.818 Encounter for other preprocedural examination (principal) | CPT/HCPCS: 80053; 85007; 85027 ==

== ENCOUNTER 2024-12-10 16:22 | Outpatient (CLI) | payer MEDICARE, SELFPAY ==
[2024-12-10 17:00] LABS: Basophils # 0.1 10^3/uL (0.0-0.1); Basophils % 0.7 %; Eosinophils # 0.2 10^3/uL (0.0-0.8); Eosinophils % 1.7 %; Hematocrit 39.2 % (36-47); Lymphocytes # 4.9 10^3/uL (0.8-4.8); Lymphocytes % 48.8 %; Mean Corpuscular HGB Conc 32.4 g/dL (30-55); Mean Corpuscular Hemoglobin 31.8 pg (27-33); Mean Platelet Volume 9.4 fL (7.4-10.4); Monocytes # 0.4 10^3/uL (0.2-0.9); Monocytes % 4.3 %; Neutrophils # 4.46 10^3/uL (1.8-7.7); Neutrophils % 44.2 %; Nucleated Red Blood Cells % 0 %; Platelet Count 396 10^3/cmm (157-399); Red Cell Distribution Width 13.5 % (12.1-15.1); White Blood Count 10.08 10^3/uL (3.29-11.43)
--- NOTE | 2024-12-10 17:00 | CT_ITS ---
WS: [id number] CT RIGHT hip for ZOE procedure HISTORY: M16.11 - Unilateral primary osteoarthritis, right hip Date: 12/10/2024 COMPARISON: 09/13/2024 TECHNIQUE: Protocol for ZOE total hip replacement has been obtained. This includes axial imaging from the hip joint through the knee joint. DLP: 937.02 mGy FINDINGS: Pelvis: Advanced degenerative changes involving the RIGHT hip. Bone upon bone with sclerosis involving the acetabulum and RIGHT femoral head. Numerous subchondral cystic changes with fissuring of the femoral head and the cartilage. Mild flattening of the RIGHT femoral head. Additional more moderate degenerative changes at the LEFT hip joint. Calcifications of the distal aorta extending through the iliac and femoral arteries. Minimally distended urinary bladder. No adenopathy or ascites. RIGHT knee: Mild tricompartment osteoarthritis and joint space narrowing. Mild muscle atrophy. Vascular calcifications. No significant joint effusion. CT/CT hip RT [facility] [id number] IMPRESSION: CT imaging provided for [facility] robotic total knee replacement.
[2024-12-10 17:24] LABS: Bilirubin Urine Negative (Negative); Blood Urine Trace (Negative); Glucose Urine UA Negative (Normal); Ketones Urine Negative (Negative); Leukocyte Esterase Urine 3+ (Negative); Nitrate Urine Positive (Negative); Protein Urine Negative (Negative); Specific Gravity, Urine 1.008 (1.005-1.030); Urine Appearance Cloudy (CLEAR); Urine Color Yellow (Yellow); Urobilinogen Urine 0.2 mg/dL (Negative); pH Urine 5.5 (5-7)
[2024-12-10 17:31] LABS: Bacteria Urine 4+ /hpf; Hyaline Casts Urine 1.21 /lpf; RBC Urine 0-2 /hpf (0-2); WBC Urine >100 /hpf (0-5)
[2024-12-10 17:35] LABS: Alanine Aminotransferase 19 U/L (0-33); Albumin Level 4.4 g/dL (3.5-5.2); Alkaline Phosphatase 98 U/L (35-105); Anion Gap 18.6 (5-19); Aspartate Amino Transferase 30 U/L (0-32); Blood Urea Nitrogen 23 mg/dL (8-23); Calcium 9.7 mg/dL (8.5-10.5); Carbon Dioxide 21 mmol/L (22-29); Chloride 103 mmol/L (98-107); Globulin 3.5 g/dL (1.3-4.6); Glucose 51 mg/dL (65-115); Osmolality Calculated 287 mOsm/kg (285-295); Potassium 4.6 mmol/L (3.5-5.1); Sodium 138 mmol/L (136-145); Total Bilirubin 0.2 mg/dL (0.15-1.2); Total Protein 7.9 g/dL (6.6-8.7)
[2024-12-10 17:45] LABS: Add Urine Culture? Yes
== END 2024-12-10 16:23 | disposition home or self-care (01) ==
PROVIDERS: Physician Assistant; PCP Nurse Practitioner Family; Referring Provider Family Medicine; Visit Provider Student in an Organized Health Care Education/Training Program
DX: Z01.818 Encounter for other preprocedural examination (principal); M16.0 Bilateral primary osteoarthritis of hip; R93.7 Abnormal findings on diagnostic imaging of other parts of musculoskeletal system; I70.0 Atherosclerosis of aorta; I70.8 Atherosclerosis of other arteries; M17.11 Unilateral primary osteoarthritis, right knee; M62.58 Muscle wasting and atrophy, not elsewhere classified, other site; I70.90 Unspecified atherosclerosis
CPT/HCPCS: 36415; 73700; 80053; 81001; 85025; 87077; 87086; 87186

== ENCOUNTER 2025-05-17 16:44 | Emergency (ER) | payer MEDICARE, SELFPAY ==
[2025-05-17 16:47] VITALS: BP 180/81; PULSE 84; RESP 20; TEMP 36.3; O2SAT 97; BMI 40.9
--- OUTSIDE RECORDS SUMMARY | 2025-05-17 16:51 | XMS_ITS | Clinical Summary ---
Author Organization [facility] Address [address] [place] [address] Phone Care Team Providers Care Trend Investigator Name Role Phone Johnna Rod Primary Care Provider [phone] Allergies No known active allergies Medications insulin lispro (HUMALOG) 100 unit/mL Solution Inject 4 Units by subcutaneous injection 3 times daily with meals. Active metFORMIN (GLUCOPHAGE) 1,000 mg tablet Take 1,000 mg by mouth 2 times daily with meals. Active insulin glargine (LANTUS) 100 unit/mL Solution Inject by subcutaneous injection daily. Active ALPRAZolam (XANAX) 0.5 mg tablet Take 0.5 mg by mouth 2 times daily. Active aspirin (ECOTRIN EC) 81 mg Tablet, Delayed Release (E.C.) Take 81 mg by mouth daily. Active zolpidem (AMBIEN) 10 mg tablet Take 10 mg by mouth nightly as needed for Insomnia. Active diltiaZEM (CARDIZEM CD) 360 mg Controlled Delivery 24 hour capsule Take 360 mg by mouth daily. Active quinapriL (ACCUPRIL) 40 mg tablet Take 40 mg by mouth daily. Active carisoprodoL (SOMA) 350 mg tablet Take 350 mg by mouth 4 times daily. Active acetaminophen-c odeine (Tylenol-Codein e #4) 300-60 mg tablet Take 1 Tablet by mouth every 6 hours as needed for Pain, Moderate. Active glipiZIDE (GLUCOTROL) 5 mg tablet Take 5 mg by mouth 2 times daily with meals. Active semaglutide (Ozempic) 1 mg/dose (2 mg/1.5 mL) Pen Injector Inject by subcutaneous injection every 7 days. Active insulin degludec (Tresiba FlexTouch U-100) 100 unit/mL pen syringe Inject by subcutaneous injection. 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 Oxygen Saturation 92% 09/07/2018 9:02 PM 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 Inhaled Oxygen Concentration - - Weight 105.7 kg (233 lb) 10/14/2020 8:38 AM CDT Height 160 cm (5' 3 ) 10/14/2020 8:38 AM CDT Body Mass Index 41.27 10/14/2020 8:38 AM CDT Plan of Treatment Health Maintenance Due Date Last Done Comments DTAP/TDAP/TD VACCINES (1 - Tdap) 1974 PNEUMOCOCCAL VACCINE 50+ YEARS (1 of 2 - PCV) 08/05/18 75 COLORECTAL SCREENING 2000 Colorectal Cancer Screening 2000 FIT-DNA Q 3 years 2000 FIT/FOBT Q 1 year 2000 Flex Sig/CT Colonography Q 5 years 2000 ZOSTER VACCINE (1 of 2) 2005 BREAST CANCER SCREENING 01/27/2008 01/26/2007 OSTEOPOROSIS SCREENING 2020 INFLUENZA VACCINE (#1) 2025 RSV VACCINE (60+ or ) (1 - 1-dose 75+ series) 2030 Insurance MEDICARE PART A AND B Care Teams Trend Investigator Relationship Specialty Start Date End Date Johnna Rod, CLEVE PCP - General Nurse Practitioner Family 10/14/20
--- OUTSIDE RECORDS SUMMARY | 2025-05-17 16:52 | XMS_ITS | Clinical Summary ---
Author Organization [facility] Address [address] [place] [address] Phone Care Team Providers Care Retail Sales Professional Name Role Phone Jayda Jimenez MD Primary Care Provider [phone] Allergies No known active allergies Medications ALPRAZolam (XANAX) 0.5 mg tablet Take 0.5 mg by mouth 2 times daily. Active aspirin (ECOTRIN EC) 81 mg Tablet, Delayed Release (E.C.) Take 81 mg by mouth daily. Active carisoprodoL (SOMA) 350 mg tablet Take 350 mg by mouth 2 times daily. Active diltiaZEM (TIAZAC) 360 mg Extended Release capsule Take 360 mg by mouth daily. Active glipiZIDE (GLUCOTROL) 5 mg tablet Take 5 mg by mouth 2 times daily with meals. Active insulin glargine (LANTUS) 100 unit/mL vial Inject by subcutaneous injection daily. Active metFORMIN (GLUCOPHAGE) 1,000 mg tablet Take 1,000 mg by mouth 2 times daily with meals. Active CRANBERRY ORAL Take 2 Tablets by mouth daily. For urinary tract health Active glipiZIDE (GLUCOTROL) 5 mg tablet Take 5 mg by mouth 2 times daily with meals. 0 Active lisinopriL (PRINIVIL) 20 mg tablet Take 1 Tablet by mouth daily. 5 Active camphor-methyl salicyl-menthoL (SALONPAS) Adhesive Patch, Medicated Apply to affected area. Active lidocaine HCl/menthol (NERVIVE PAIN RELIEVING TOPICAL) Apply to affected area. Active HYDROcodone-brenda taminophen (NORCO) 5-325 mg tabletIndicatio ns:Arthritis of right hip Take 1 Tablet by mouth every 8 hours as needed for Pain, Moderate. Max Daily Amount: 3 Tablets 90 Tablet 5 Active HYDROcodone-brenda taminophen (NORCO) 5-325 mg tabletIndicatio ns:Arthritis of right hip Take 1 Tablet by mouth every 8 hours as needed for Pain, Moderate. Max Daily Amount: 3 Tablets 90 Tablet 5 Active zolpidem (AMBIEN) 10 mg tabletIndicatio ns:Primary insomnia TAKE 1 TABLET ORALLY AT BEDTIME 30 Tablet 5 5 Active Active Problems Problem Noted Date Diagnosed Date Arthritis of right hip 02/14/2025 Type 2 diabetes mellitus wit hout complication, with long-term current use of insulin 02/14/2025 Primary insomnia 02/14/2025 Generalized anxiety disorder 02/14/2025 Recurrent UTI 02/14/2025 Encounters Date Type Department Care Team Description 04/23/2025 External Device Data ST[facility] ABSTRACTION Provider, Abstract 04/22/2025 External Device Data [facility] ABSTRACTION Provider, Abstract 04/22/2025 Telephone [place] [address] [place] [address] Leonidas Gao MD Question 04/16/2025 External Device Data Initial Department [address] [place] [address] Dr SNELL: [place] [address] [facility], 04/15/2025 8:40 AM CDT Office Visit [place] [address] [place] [address] Robb Coleman PA Tobacco use (Primary Dx); Arthritis of right hip 04/15/2025 Orders Only [facility] [address] [place] [phone] Leonidas Gao MD 04/03/2025 Results Follow-Up [facility] [place] [address] [place] [phone] Hewitt, Afsaneh POC URINALYSIS DIPSTICK AUTOMATED, MISCELLANEOUS LAB TEST, URINALYSIS MICROSCOPY ONLY 04/02/2025 Refill [facility] [address] [phone] Jim Quintero DO Primary insomnia (Primary Dx) 04/01/2025 12:48 PM CDT - 04/01/2025 11:59 PM CDT Hospital En[facility] [place] [address] [facility] [address] [place] [phone] Layla Cruz FNP Discharge Disposition: Home or Self Care 03/28/2025 2:14 PM CDT - 03/28/2025 11:59 PM CDT Hospital Encounter [place] [address] [place] [phone] Jayda Jimenez MD Discharge Disposition: Home or Self Care 03/28/2025 12:59 PM CDT - 03/28/2025 11:59 PM CDT Hospital Encounter [place] [address] [place] [phone] Jayda Jimenez MD Discharge Disposition: Home or Self Care 03/27/2025 2:30 PM CDT Office Visit [facility] [address] [place] [phone] Layla Cruz FNP Recurrent UTI (Primary Dx); Flank pain 03/25/2025 Refill [facility] [address] [phone] Jayda Jimenez MD Arthritis of right hip 03/18/2025 External Device Data [facility] ABSTRACTION Provider, Abstract 03/12/2025 7:29 AM CDT - 03/12/2025 11:59 PM CDT Hospital Encounter [facility] [place] [address] [place] [phone] Jayda Jimenez MD Discharge Disposition: Home or Self Care 03/04/2025 External Device Data [facility] ABSTRACTION Provider, Abstract 02/26/2025 External Device Data [facility] ABSTRACTION Provider, Abstract 02/24/2025 Refill [facility] [address] [phone] Jayda Jimenez MD Arthritis of right hip 02/20/[address] [place] [phone] Provider, Abstract urology referral appointment 02/19/2025 1:00 PM CDT Office Visit [place] [address] [place] [address] Robb Coleman PA Recurrent UTI (Primary Dx); Arthritis of right hip 02/19/2025 12:35 PM CDT Ancillary Procedure [place] [address] [place] [phone] Leonidas Gao MD Arthritis of right hip 02/18/2025 External Device Data [facility] ABSTRACTION Provider, Abstract 02/18/2025 External Device Data [facility] ABSTRACTION Provider, Abstract 02/18/2025 Orders Only [place] [address] [place] [phone] Leonidas Gao MD Arthritis of right hip (Primary Dx) 02/17/2025 Results Follow-Up [facility] [address] [phone] Jayda Jimenez MD CBC WITH DIFFERENTIAL, COMPREHENSIVE METABOLIC PANEL, LIPID PANEL, Additional followed-up results: 4 02/14/2025 10:40 AM CDT Office Visit [facility] [address] [phone] Jayda Jimenez MD Arthritis of right hip (Primary Dx); Recurrent UTI; Type 2 diabetes mellitus without complication, with long-term current use of insulin ([facility]); Primary insomnia; Generalized anxiety disorder; Screening mammogram, encounter for; Screening for deficiency anemia; Lipid screening; Morbid obesity with body mass index (BMI) of 40.0 or higher ([facility]) 02/14/2025 Orders Only [facility] [address] [place] [address] Provider, Abstract from Last 3 Months Family History Medical History Relation Name Comments Brain Cancer Father Dez Singh Cancer - Other Father Dez Singh Hypertension Father Dez Singh Lung Cancer Father Dez Singh Breast Cancer Paternal Aunt Melanoma Neg Hx Ovarian Cancer Neg Hx Pancreatic Cancer Neg Hx Uterine or Endometrial Cance r, Not Including Cervical Neg Hx Relation Name Status Comments Father Dez Singh Mother Paternal Aunt Social History Tobacco Use Types Packs/Day Years Used Date Smoking Tobacco: Former Cigarettes 0.7 75 1 975 - 07/20/2024 Smokeless Tobacco: Never Tobacco Cessation:Counseling Given: Not Answered Alcohol Use Standard Drinks/Week Comments Never 0 (1 standard drink = 0.6 oz pur e alcohol) Comments No Sex and Gender Information Value Date Recorded Sex Assigned at Not on file Legal Sex Female 7:29 AM UNIT TRUST MANAGER Gender Identity Not on file Sexual Orientation Not on file Last Filed Vital Signs Vital Sign Reading Time Taken Comments Blood Pressure 130/78 04/15/2025 8:20 AM CDT Pulse 56 02/14/2025 11:05 AM CDT Temperature 36.4 C (97.6 F) 02/14/2025 11:05 AM CDT Respiratory Rate 18 02/14/2025 11:05 AM CDT Oxygen Saturation 92% 02/14/2025 11:05 AM CDT Inhaled Oxygen Concentration - - Weight 104.8 kg (231 lb) 04/15/2025 8:20 AM CDT Height 160 cm (5' 3 ) 04/15/2025 8:20 AM CDT Body Mass Index 40.92 04/15/2025 8:20 AM CDT Plan of Treatment Upcoming Encounters Date Type Department Care Team (Latest Contact Info) Description 05/19/2025 9:00 AM UNIT TRUST MANAGER Office Visit [address] [phone] Jayda Jimenez MD [address] [phone] 05/22/2025 10:00 AM UNIT TRUST MANAGER [facility]ointment [facility] [address] [place] [phone] 06/11/2025 12:43 PM UNIT TRUST MANAGER Hospital Encounter [facility] Operating Room [address] [place] [phone] Leonidas Gao MD [address] [place] [address] Osteoarthritis of right hip, unspecified osteoarthritis type 06/11/2025 12:43 PM UNIT TRUST MANAGER - 06/11/2025 2:23 PM UNIT TRUST MANAGER Surgery [facility] Operating Room [address] [place] [place] [address] Leonidas Gao MD [address] [place] [address] HIP ARTHROPLASTY TOTAL ANTERIOR APPROACH 07/08/2025 9:20 AM UNIT TRUST MANAGER Office Visit [facility] [address] [place] [address] Robb Coleman PA [address] [place] [address] Scheduled Procedures Name Priority Associated Diagnoses Date/Ti me HIP ARTHROPLASTY TOTAL ANTERIOR APPROACH Osteoarthritis of right hip, unspecified osteoarthritis type 06/11/2025 12:43 PM UNIT TRUST MANAGER Health Maintenance Due Date Last Done Comments DIABETES ANNUAL FOOT EXAM 1973 DIABETES ANNUAL RETINAL EXAM 1973 FIT/ DNA Q 3 YEARS (AUTO ORDER) 1973 FIT/FOBT Q 1 YEAR (AUTO ORDER) 1973 FLEX SIG/CT COLONOGRAPHY Q 5 YEARS (AUTO ORDER) 1973 DTAP/TDAP/TD VACCINES (1 - Tdap) 1974 PNEUMOCOCCAL VACCINE 50+ YEARS (1 of 2 - PCV) 1974 Traditional Medicare (ACO) Annual Wellness Visit 1974 COLORECTAL CANCER SCREENING (AUTO ORDER) 2000 COLORECTAL SCREENING 2000 Colorectal Cancer Screening (AUTO ORDER) 2000 FIT-DNA Q 3 years 2000 FIT/FOBT Q 1 year 2000 Flex Sig/CT Colonography Q 5 years 2000 Lung Cancer Screening 2005 RSV VACCINE (60+ or ) (1 - Risk 50-74 years 1-dose series) 2005 ZOSTER VACCINE (1 of 2) 2005 OSTEOPOROSIS SCREENING 2020 INFLUENZA VACCINE (#1) 2025 DIABETES HBA1C Q 6 MONTHS 08/17/2025 02/14/2025 Colorectal Cancer Screening 02/14/2026 Postponed from 2000 (Patient Refused) DIABETES MICROALBUMIN ANNUAL SCREEN 02/14/2026 02/14/2025 DIABETES: A1C (Auto Order) 02/14/2026 02/14/2025 LDL CHOLESTEROL ANNUAL 02/14/2026 02/14/2025 BREAST CANCER SCREENING 03/28/2026 03/28/20 25, 03/12/2025 Goals Goal Patient Goal Type Associated Problems Recent Progress Patient-Stated? Author Autogenerat ed Goal Care Plan Autogenerated Problem No Jesika Negrete [employer] Devices Implanted Type Area Laboratory Technology Teacher Device Identifier Shelf Expiration Date Model / Serial / Lot Clip Crtg Med/Lrg 1112 - Sn/A Implanted:Qty: 1 on 12/21/2021 by Nathan Brasher DO at [facility] Clip N/A: Abdomen [employer] 09/27/2026 1112 / N/A / [id number] Procedures Procedure Name Priority Date/Time Associated Diagnosis Comments CT URINARY CALCULI WO CONTRAST Routine 04/01/2025 1:04 PM CDT Flank pain MAMMO BREAST US RIGHT LTD Routine 03/28/2025 2:44 PM CDT Inconclusive mammogram MAMMO DIAG UNI RIGHT 3D GLORIA W OR WO CAD Routine 03/28/2025 2:44 PM CDT Inconclusive mammogram MISCELLANEOUS LAB TEST Routine 2:40 PM CDT Recurrent UTI URINALYSIS MICROSCOPY ONLY Routine 03/27/2025 2:40 PM CDT Recurrent UTI POC URINALYSIS DIPSTICK AUTOMATED Routine 03/27/2025 2:31 PM CDT MAMMO 3D GLORIA SCREEN BILAT W OR WO CAD Routine 03/12/2025 8:11 AM CDT Screening mammogram, encounter for XR PELVIS 1 OR 2 VW Routine 02/19/2025 1 2:56 PM CDT Arthritis of right hip MICROALBUMIN/CREATININ E RATIO, RANDOM UR Routine 02/14/2025 11:49 AM CDT Type 2 diabetes mellitus without complication, with long-term current use of insulin ([facility]) MEDICATION COMPLIANCE DRUG SCREEN Routine 02/14/2025 11:49 AM CDT Arthritis of right hip URINALYSIS WITH REFLEX CULTURE Routine 02/14/2025 11:49 AM CDT Recurrent UTI URINE CULTURE Routine 02/14/2025 11:49 AM CDT HEMOGLOBIN A1C Routine 02/14/2025 11:32 AM CDT Type 2 diabetes mellitus without complication, with long-term current use of insulin ([facility]) LIPID PANEL Routine 02/14/2025 11:32 AM CDT Lipid screening COMPREHENSIVE METABOLIC PANEL Routine 02/14/2025 11:32 AM CDT Lipid screening CBC WITH DIFFERENTIAL Routine 02/14/2025 11:32 AM CDT Screening for deficiency anemia from Last 3 Months Results * CT URINARY CALCULI WO CONTRAST (04/01/2025 1:04 PM CDT) Anatomical Region Laterality Modality Abdomen Computed Tomogra phy 04/01/2025 12:4 4 PM CDT Impressions 04/01/2025 1:56 PM CDT IMPRESSION: 1. Nonobstructive right nephrolithiasis. 2. Moderate right renal atrophy. 3. Other findings as above Narrative 04/01/2025 1:[address] URINARY CALCULI WO CONTRAST Reason For Exam: Flank pain, stone disease suspected. Diagnosis: Flank pain. TECHNIQUE: CT of the abdomen and pelvis was performed without the use of IV contrast. CONTRAST: This exam did not utilize IV contrast and therefore subtle abnormalities may be occult. COMPARISON: None. FINDINGS: INCLUDED LUNG BASES: The included lung bases are unrevealing. LIVER AND BILIARY: Liver demonstrates normal attenuation. No evidence of intrahepatic biliary dilatation. PANCREAS: The pancreas is grossly unremarkable. SPLEEN: The spleen is not enlarged and is otherwise grossly unremarkable. KIDNEYS: Moderate right renal atrophy. No hydronephrosis. Nonobstructive 3 mm right lower renal pole calculus. Left renal cyst is present. ADRENALS: The adrenal glands are unremarkable. LYMPH NODES: No enlarged retroperitoneal lymph nodes are seen. BOWEL: Bowel caliber is within normal limits without evidence of obstruction. Large amount of retained colonic stool. Appendix is unremarkable. PERITONEUM: No free air is seen. No free fluid is seen. URINARY BLADDER/ADNEXA: Urinary bladder is grossly unremarkable. Uterus is absent. No suspicious adnexal mass is noted. AORTA/VASCULAR: Abdominal aorta is non-aneurysmal. MUSCULOSKELETAL: Review of bone windows does not reveal a suspicious osseous lesion. Procedure Note Nilesh Del Real MD - 04/01/2025 CT URINARY CALCULI WO CONTRAST Reason For Exam: Flank pain, stone disease suspected. Diagnosis: Flank pain. TECHNIQUE: CT of the abdomen and pelvis was performed without the use of IV contrast. CONTRAST: This exam did not utilize IV contrast and therefore subtle abnormalities may be occult. COMPARISON: None. FINDINGS: INCLUDED LUNG BASES: The included lung bases are unrevealing. LIVER AND BILIARY: Liver demonstrates normal attenuation. No evidence of intrahepatic biliary dilatation. PANCREAS: The pancreas is grossly unremarkable. SPLEEN: The spleen is not enlarged and is otherwise grossly unremarkable. KIDNEYS: Moderate right renal atrophy. No hydronephrosis. Nonobstructive 3 mm right lower renal pole calculus. Left renal cyst is present. ADRENALS: The adrenal glands are unremarkable. LYMPH NODES: No enlarged retroperitoneal lymph nodes are seen. BOWEL: Bowel caliber is within normal limits without evidence of obstruction. Large amount of retained colonic stool. Appendix is unremarkable. PERITONEUM: No free air is seen. No free fluid is seen. URINARY BLADDER/ADNEXA: Urinary bladder is grossly unremarkable. Uterus is absent. No suspicious adnexal mass is noted. AORTA/VASCULAR: Abdominal aorta is non-aneurysmal. MUSCULOSKELETAL: Review of bone windows does not reveal a suspicious osseous lesion. IMPRESSION: 1. Nonobstructive right nephrolithiasis. 2. Moderate right renal atrophy. 3. Other findings as above us Layla Guidry Anthony PROFESSOR OF PHILOSOPHY CT ORDERABLES Final Resu lt * (ABNORMAL) MAMMO BREAST US RIGHT [facility] (03/28/2025 2:44 PM CDT) Anatomical Region Laterality Modality Right Ultrasound 03/28/2025 2:44 PM CDT Impressions 03/28/2025 5:00 PM CDT IMPRESSION: Probably benign right breast mass. A six-month follow-up right diagnostic mammogram and right breast ultrasound are recommended. BI-RADS ASSESSMENT: 3 - Probably Benign RECOMMENDATION: Interval follow-up is recommended. The patient was given verbal and written results and recommendations by the technologist. Narrative 03/28/2025 5:00 PM CDT EXAM: MAMMO 3D [facility] DIAGNOSTIC UNI RT 3D W OR WO CAD, MAMMO BREAST US RIGHT LTD INDICATION: The patient was recalled from screening mammography for evaluation of right breast asymmetry. COMPARISON: Screening mammogram dated 03/12/2025. Older mammograms dating back to 2019.. BREAST COMPOSITION: There are scattered areas of fibroglandular density. DIAGNOSTIC RIGHT MAMMOGRAM Examination is slightly limited by challenges with positioning the patient, who is in a wheelchair. There is a persistent 0.6 cm circumscribed mass at the 11-12:00 position. Ultrasound will be performed. ULTRASOUND RIGHT BREAST: A limited ultrasound was performed with real-time scanning. At 12:00, 4 cm from the nipple there is an oval circumscribed hypoechoic mass measuring 0.7 cm. This likely correlates with the mammographic finding and is probably benign. Interval follow-up is recommended. us Jayda Jimenez MD MAMMO ORDERABLES Final Res ult * (ABNORMAL) MAMMO 3D [facility] DIAGNOSTIC UNI RT 3D W OR WO CAD (03/28/2025 2:44 PM CDT) Anatomical Region Laterality Modality Breast Right Mammography 03/28/2025 2:44 PM CDT Impressions 03/28/2025 5:00 PM CDT IMPRESSION: Probably benign right breast mass. A six-month follow-up right diagnostic mammogram and right breast ultrasound are recommended. BI-RADS ASSESSMENT: 3 - Probably Benign RECOMMENDATION: Interval follow-up is recommended. The patient was given verbal and written results and recommendations by the technologist. Narrative 03/28/2025 5:00 PM CDT EXAM: MAMMO 3D [place] DIAGNOSTIC UNI RT 3D W OR WO CAD, MAMMO BREAST US RIGHT LTD INDICATION: The patient was recalled from screening mammography for evaluation of right breast asymmetry. COMPARISON: Screening mammogram dated 03/12/2025. Older mammograms dating back to 2019.. BREAST COMPOSITION: There are scattered areas of fibroglandular density. DIAGNOSTIC RIGHT MAMMOGRAM Examination is slightly limited by challenges with positioning the patient, who is in a wheelchair. There is a persistent 0.6 cm circumscribed mass at the 11-12:00 position. Ultrasound will be performed. ULTRASOUND RIGHT BREAST: A limited ultrasound was performed with real-time scanning. At 12:00, 4 cm from the nipple there is an oval circumscribed hypoechoic mass measuring 0.7 cm. This likely correlates with the mammographic finding and is probably benign. Interval follow-up is recommended. us Jayda Jimenez MD MAMMO ORDERABLES Final Res ult * MISCELLANEOUS LAB TEST (03/27/2025 2:40 PM CDT) Other, specify 03/27/2025 2: 40 PM CDT Layla Cruz PROFESSOR OF PHILOSOPHY CHEMISTRY ORDERABLES Final Result [facility] [phone] * (ABNORMAL) URINALYSIS MICROSCOPY ONLY (03/27/2025 2:40 PM CDT) WBC UA > OR = 60(A) < OR = 5 /HPF [facility] RBC UA NONE SEEN < OR = 2 /HPF [facility] EPITHELIAL CELLS, URINE 10-20(A) < OR = 5 /HPF [facility] BACTERIA UA MANY(A) NONE SEEN /HPF [facility] HYALINE CAST NONE SEEN NONE SEEN /LPF [facility] URINE NOTE [facility] Comment: This urine was analyzed for the presence of WBC, RBC, bacteria, casts, and other formed elements. Only those elements seen were reported. Test Performed at: [facility] [id number] [place] [address] Xander Hill MD Urine URINE SPECIMEN OBTAINED BY CLEAN CATCH PROCEDURE / Unknown 03/27/2025 2:40 PM CDT 03/28/2025 12:53 AM CDT Layla Cruz [facility] URINE ORDERABLES Final Res ult Performing Organization Address [facility]/ZIP Co de Phone Number [facility] [phone] [facility] [employer] [address] [place] [address] * (ABNORMAL) POC URINALYSIS DIPSTICK AUTOMATED (03/27/2025 2:31 PM CDT) COLOR UA Dark Yellow Pale to Dark Yellow 03/27/2025 2:31 PM CDT [facility] CLARITY UA Turbid(A) Clear 03/27/2025 2:31 PM CDT [facility] GLUCOSE UA Negative Negative 03/27/2025 2:31 PM CDT [facility] BILIRUBIN UA Negative Negative 03/27/2025 2:31 PM CDT [facility] KETONES UA Negative Negative 03/27/2025 2:31 PM CDT [facility] BLOOD UA Trace(A) Negative 03/27/2025 2:31 PM CDT [facility] PH UA 5.5 5.0 - 8.0 03/27/2025 2:31 PM CDT [facility] PROTEIN UA 1+(A) Negative 03/27/2025 2:31 PM CDT [facility] UROBILINOGEN UA 0.2 <2.0 mg/dL 2:31 PM CDT [facility] NITRITE UA Positive(A) Negative 03/27/2025 2:31 PM CDT [facility] LEUKOCYTE ESTERASE UA 3+(A) Negative 03/27/2025 2:31 PM CDT [facility] SPECIFIC GRAVITY UA POC 1.020 1.000 - 1.030 03/27/2025 2:31 PM CDT [facility] Urine 03/27/2025 2:31 PM CDT 03/27/2025 2:33 PM CDT Narrative [facility] - 03/27/2025 2:31 PM CDT Recommend Urine Microcopic ([id number])and Urine Culture ([id number]) if indicated. Layla Cruz PROFESSOR OF PHILOSOPHY POINT OF CARE TESTING Soledad l Result [facility] CLIA# [id number] [address] [place] [address], [place] * MAMMO 3D [place]IA SCREEN BILAT W OR WO CAD (03/12/2025 8:11 AM CDT) Anatomical Region Laterality Modality Breast Bilateral Mammography, Dig ital Radiography 03/12/2025 8:12 AM CDT Impressions 03/13/2025 10:54 AM CDT IMPRESSION: RIGHT BREAST: Indeterminate asymmetry. Additional diagnostic mammography is recommended. Ultrasound may also be necessary. LEFT BREAST: No imaging evidence of malignancy. BI-RADS ASSESSMENT: 0 - Incomplete - Need Additional Imaging Evaluation RECOMMENDATION: Additional Imaging The facility will notify the patient of the need to return for additional imaging and will schedule the appointment. Narrative 03/13/2025 10:54 AM CDT EXAM: MAMMO 3D [place] SCREEN BILAT W OR WO CAD INDICATION: Screening. COMPARISON: Comparison was made to exams dating back to 2019. BREAST COMPOSITION: There are scattered areas of fibroglandular density. FINDINGS: RIGHT BREAST: A focal asymmetry is seen in the upper outer quadrant, 9 cm from the nipple. LEFT BREAST: There are no suspicious masses, calcifications, or areas of architectural distortion. us Jayda Jimenez MD MAMMO ORDERABLES Final Res ult * XR PELVIS 1 OR 2 VW (02/19/2025 12:56 PM CDT) Anatomical Region Laterality Modality Pelvis Computed Radiogr aphy Narrative 02/25/2025 6:32 AM CDT AP Pelvis and Right hip AP and lateral views with weight bearing studies reveal: severe hip arthritis. Joint space narrowing, periarticular osteophytes, subchondral sclerosis present. Leonidas Gao MD DIAGNOSTIC IMAGING [facility] Final Result * (ABNORMAL) MEDICATION COMPLIANCE DRUG SCREEN (02/14/2025 11:49 AM CDT) Summary [facility] Comment: Prescribed Prescribed Not Prescribed Consistent Inconsistent Inconsistent Alphahydroxyalprazolam Codeine Hydrocodone Meprobamate Morphine Norhydrocodone Zolpidem Zolpidem Metabolite BUPRENORPHINE (URINE) NEGATIVE CONFIRMED <5 ng/mL [facility] BUPRENORPHINE (URINE) NEGATIVE <2 ng/mL [facility] Norbuprenorphine, Urine NEGATIVE <2 ng/mL [facility] NALOXONE, URINE NEGATIVE <2 ng/mL [facility] Buprenorphine Comments [facility] Comment:See LDT Notes Fentanyl NEGATIVE <0.5 ng/mL [facility] Propoxyphene, Urine NEGATIVE <300 ng/mL [facility] MDA ([employer]), Urine NEGATIVE <200 ng/mL [facility] MDMA ([employer]), Urine NEGATIVE <200 ng/mL [facility] MDMA Comments [facility] Comment:See LDT Notes Meprobamate, Urine 54440(H) <1000 ng/mL [facility] medMATCH Meprobamate, Urine INCONSISTENT (A) [facility] Carisoprodol Comments [facility] Comment:See Carisoprodol Not es, LDT Notes Tapentadol, Urine NEGATIVE <50 ng/mL [facility] Nortapentadol, Urine NEGATIVE <50 ng/mL [facility] Tapentadol Comments [facility] Comment:See LDT Notes O-Desmethyltramadol , Urine NEGATIVE <100 ng/mL [facility] Tramadol, Urine NEGATIVE <100 ng/mL [facility] Tramadol Comments [facility] Comment:See LDT Notes Gabapentin, Urine NEGATIVE <1000 ng/mL [facility] Gabapentin Comments [facility] Comment:See LDT Notes Meperidine, Urine NEGATIVE <100 ng/mL [facility] Normeperidine, Urine NEGATIVE <100 ng/mL [facility] Meperidine Comments [facility] Comment:See LDT Notes PREGABALIN, QUANT URINE NEGATIVE <1000 ng/mL [facility] Pregabalin Comments [facility] Comment:See LDT Notes Alcohol Metabolites, Urine NEGATIVE <500 ng/mL [facility] AMPHETAMINES (URINE) NEGATIVE <500 ng/mL [facility] BARBITURATES (URINE) NEGATIVE <300 ng/mL [facility] BENZODIAZEPINES (URINE) POSITIVE(A) <100 ng/mL [facility] Alpha-hydroxyalpraz olam, Urine 1037(H) <25 ng/mL [facility] medMATCH aOH alprazolam, Urine INCONSISTENT (A) [facility] ALPHA-HYDROXYMIDAZO NOLASCO QUANT, URINE NEGATIVE <50 ng/mL [facility] Alpha-Hydroxytriazo nolasco, Urine NEGATIVE <50 ng/mL [facility] Aminoclonazepam, Urine NEGATIVE <25 ng/mL [facility] Hydroxyethylfluraze siena, Urine NEGATIVE <50 ng/mL [facility] Lorazepam, Urine NEGATIVE <50 ng/mL [facility] NORDIAZEPAM QUANT, URINE NEGATIVE <50 ng/mL [facility] Oxazepam, Urine NEGATIVE <50 ng/mL [facility] Temazepam, Urine NEGATIVE <50 ng/mL [facility] BENZODIAZEPINES, COMMENT [facility] Comment:See Benzodiazepines Notes, LDT Notes COCAINE & METABOLITE (URINE) NEGATIVE <150 ng/mL [facility] 6 ACETYLMORPHINE, URINE NEGATIVE <10 ng/mL [facility] CANNABINOIDS QUAL, URINE NEGATIVE <20 ng/mL [facility] Methadone Metabolite, Urine NEGATIVE <100 ng/mL [facility] OPIATE CLASS (URINE) POSITIVE(A) <100 ng/mL [facility] Codeine, Urine >63435(H) <50 ng/mL [facility] medMATCH Codeine, Urine INCONSISTENT (A) [facility] Hydrocodone, Urine 714(H) <50 ng/mL [facility] medMATCH Hydrocodone, Urine INCONSISTENT (A) [facility] Hydromorphone, Urine NEGATIVE <50 ng/mL [facility] Morphine, Urine 2935(H) <50 ng/mL [facility] medMATCH Morphine, Urine INCONSISTENT (A) [facility] Norhydrocodone, Urine 602(H) <50 ng/mL [facility] medMATCH Norhydrocodone, Urine INCONSISTENT (A) [facility] OPIATES, COMMENT [facility] Comment:See Opiates Notes, L DT Notes OXYCODONE CLASS (URINE) NEGATIVE <100 ng/mL [facility] PHENCYCLIDINE, URINE NEGATIVE <25 ng/mL [facility] Creatinine, Urine 212.5 > or = 20.0 mg/dL [facility] PH 6.0 4.5 - 9.0 [facility] OXIDANT, URINE NEGATIVE <200 mcg/mL [facility] ZOLPIDEM, URINE 180(H) <5 ng/mL [facility] medMATCH Zolpidem INCONSISTENT (A) [facility] Zolipidem Metabolite, Urine >2500(H) <5 ng/mL [facility] medMATCH Zolpidem Metab INCONSISTENT (A) [facility] Zolpidem Comments [facility] Comment:See Zolpidem Notes, LDT Notes COMMENT TOXICOLOGY [facility] Comment: This drug testing is for medical treatment only. Analysis was performed as non-forensic testing and these results should be used only by healthcare providers to render diagnosis or treatment, or to monitor progress of medical conditions. Benzodiazepines Notes: aOH Alprazolam detected is consistent with the use of the drug Alprazolam. Carisoprodol Notes: Meprobamate detected is consistent with the use of the drug Carisoprodol. Meprobamate can be a prescribed drug and is also a metabolite of Carisoprodol. Opiates Notes: Codeine, Morphine detected is consistent with the use of the drug Codeine. Morphine is a metabolite of Codeine. Low concentrations of Morphine have been observed following ingestion of products containing poppy seeds. Morphine detected is consistent with the use of the drug Morphine. Morphine can be a prescribed drug and is also a metabolite of Codeine and Heroin. Low concentrations of Morphine have been observed following ingestion of products containing poppy seeds. Hydrocodone, Norhydrocodone detected is consistent with the use of the drug Hydrocodone. The metabolite Hydromorphone is not present at or above the cutoff. Hydrocodone < 15% Codeine detected is consistent with Hydrocodone as minor metabolite of Codeine. Zolpidem Notes: Zolpidem, Zolpidem Metabolite detected is consistent with the use of the drug Zolpidem. LDT Notes: Confirmation tests were developed and their analytical performance characteristics have been determined by [facility]. It has not been cleared or approved by the FDA. This assay has been validated pursuant to the CLIA regulations and is used for clinical purposes. medMATCH(R) enables providers to identify if drug use is consistent or inconsistent with a corresponding prescribed medication(s) list. Healthcare Providers needing Interpretation assistance, please contact us at [phone] ([phone]) M-F, 8am to 10pm EST Test Performed at: [facility] [address] [place] [address] Nilesh EWING Urine URINE SPECIMEN OBTAINED BY CLEAN CATCH PROCEDURE / Unknown 02/14/2025 11:49 AM CDT 02/15/2025 4:45 AM CDT us Jayda Jimenez MD URINE ORDERABLES Final Res ult [facility] [phone] [facility] [address] [place] [address] * (ABNORMAL) URINALYSIS WITH REFLEX CULTURE (02/14/2025 11:49 AM CDT) COLOR UA DARK YELLOW YELLOW [facility] CLARITY UA TURBID(A) CLEAR [facility] [place] SPECIFIC GRAVITY UA 1.028 1.001 - 1.035 [facility] [place] PH UA < OR = 5.0(A) 5.0 - 8.0 [facility] [place] GLUCOSE UA NEGATIVE NEGATIVE [facility] [place] BILIRUBIN UA NEGATIVE NEGATIVE [facility] [place] KETONES UA 1+(A) NEGATIVE [facility] [place] BLOOD UA 1+(A) NEGATIVE [facility] [place] PROTEIN UA 2+(A) NEGATIVE [facility] [place] NITRITE UA POSITIVE(A) NEGATIVE [facility] [place] LEUKOCYTE ESTERASE UA 3+(A) NEGATIVE [facility] [place] WBC UA PACKED(A) < OR = 5 /HPF [facility] [place] RBC UA 3-10(A) < OR = 2 /HPF [facility] [place] EPITHELIAL CELLS, URINE 10-20(A) < OR = 5 /HPF [facility] [place] BACTERIA UA MANY(A) NONE SEEN /HPF [facility] [place] HYALINE CAST 10-20(A) NONE SEEN /LPF [facility] [place] URINE NOTE [facility] [place] Comment: This urine was analyzed for the presence of WBC, RBC, bacteria, casts, and other formed elements. Only those elements seen were reported. URINE CULTURE [facility] [place] Comment: CULTURE INDICATED - RESULTS TO FOLLOW Test Performed at: [facility] [place] [address] Xander Hill MD Urine URINE SPECIMEN OBTAINED BY CLEAN CATCH PROCEDURE / Unknown 02/14/2025 11:49 AM CDT 02/15/2025 4:45 AM CDT Jayda Jimenez MD URINE ORDERABLES Final Res ult Performing Organization Address [facility]/ZIP Co de Phone Number [facility] [phone] [facility] [address] [place] [address] * (ABNORMAL) MICROALBUMIN/CREATININE RATIO, RANDOM UR (02/14/2025 11:49 AM CDT) Pathologist [facility] CREATININE, URINE 208 20 - 275 mg/dL [facility] ALBUMIN, URINE 12.8 See Note: mg/dL [facility] Comment: Reference Range: Reference Range Not established ALB/CREAT RATIO, URINE 62(H) <30 mg/g creat [facility] Comment: The ADA defines abnormalities in albumin excretion as follows: Albuminuria Category Result (mg/g creatinine) Normal to Mildly increased <30 Moderately increased 30-299 Severely increased > OR = 300 The ADA recommends that at least two of three specimens collected within a 3-6 month period be abnormal before considering a patient to be within a diagnostic category. Test Performed at: [place] [address] [place] [address] Xander Hill MD Urine URINE SPECIMEN OBTAINED BY CLEAN CATCH PROCEDURE / Unknown 02/14/2025 11:49 AM CDT 02/15/2025 4:46 AM CDT Jayda Jimenez MD URINE ORDERABLES Final Res ult Performing Organization Address City/[facility]/ZIP Co de Phone Number [facility] [phone] [address] [place], [place] [address]ner [facility] [place] [address] * (ABNORMAL) URINE CULTURE (02/14/2025 11:49 AM CDT) URINE CULTURE SEE NOTE(A) [facility] Comment: CULTURE, URINE, ROUTINE Micro Number: [id number] Test Status: Final Specimen Source: Urine Specimen Quality: Adequate Result: Greater than 100,000 CFU/mL of Escherichia coli COMMENT: Additional non-predominating organism(s) isolated. These organisms, commonly found on external and internal genitalia, are considered colonizers. No further testing performed. E.coli INT RUDY AMOX/CLAVULANATE S 8 AMP/SULBACTAM S 8 CEFAZOLIN I 4 CEFEPIME S <=0.12 CEFTAZIDIME S <=0.5 CEFTRIAXONE S <=0.25 CIPROFLOXACIN R >=4 GENTAMICIN S <=1 IMIPENEM S <=0.25 LEVOFLOXACIN R >=8 MEROPENEM S <=0.25 NITROFURANTOIN S <=16 PIP/TAZOBACTAM S <=4 TRIMETHOPRIM/SULFA R >=320 S = Susceptible I = Intermediate R = Resistant NS = Not susceptible SDD = Susceptible Dose Dependent * = Not Tested NR = Not Reported NN = See Therapy Comments Test Performed at: [facility] [address] [place] [address] Xander Hill MD 02/14/2025 11:4 9 AM CDT 02/15/2025 4:45 AM CDT us Jayda Jimenez MD MICROBIOLOGY - GENERAL ORD ERABLES Final Result [facility] [phone] [facility] [address] [place] [address] * (ABNORMAL) CBC WITH DIFFERENTIAL (02/14/2025 11:32 AM CDT) WBC 9.8 3.8 - 10.8 Thousand/u L [facility] RBC 3.90 3.80 - 5.10 Million/uL [facility] HEMOGLOBIN 12.4 11.7 - 15.5 g/dL [facility] HEMATOCRIT 39.2 35.0 - 45.0 % [facility] MCV 100.5(H) 80.0 - 100.0 fL [facility] MCH 31.8 27.0 - 33.0 pg [facility] MCHC 31.6(L) 32.0 - 36.0 g/dL [facility] Comment: For adults, a slight decrease in the calculated MCHC value (in the range of 30 to 32 g/dL) is most likely not clinically significant; however, it should be interpreted with caution in correlation with other red cell parameters and the patient's clinical condition. RDW 14.2 11.0 - 15.0 % [facility] PLATELETS 358 140 - 400 Thousand/u L [facility] MPV 9.2 7.5 - 12.5 fL [facility] NEUTROPHIL ABSOLUTE 4,655 1,500 - 7,800 cells/uL [facility] LYMPHOCYTE ABSOLUTE 4,390(H) 850 - 3,900 cells/uL [facility] MONOCYTE ABSOLUTE 470 200 - 950 cells/uL [facility] EOSINOPHIL ABSOLUTE 225 15 - 500 cells/uL [facility] BASOPHILS ABSOLUTE 59 0 - 200 cells/uL [facility] NEUTROPHIL 47.5 % [facility] LYMPHOCYTES 44.8 % [facility] MONOCYTE 4.8 % [facility] EOSINOPHILS 2.3 % [facility] BASOPHILS 0.6 % [facility] Comment: Test Performed at: [facility] [address] [place] [address] Xander Hill MD Blood 02/14/2025 11:3 2 AM CDT 02/14/2025 11:32 AM CDT us Jayda Jimenez MD HEMATOLOGY ORDERABLES Soledad l Result [facility] [phone] [facility] [address] [place] [address] * (ABNORMAL) HEMOGLOBIN A1C (02/14/2025 11:32 AM CDT) HEMOGLOBIN A1C 5.7(H) <5.7 % [facility] Comment: For someone without known diabetes, a hemoglobin A1c value between 5.7% and 6.4% is consistent with prediabetes and should be confirmed with a follow-up test. For someone with known diabetes, a value <7% indicates that their diabetes is well controlled. A1c targets should be individualized based on duration of diabetes, age, comorbid conditions, and other considerations. This assay result is consistent with an increased risk of diabetes. Currently, no consensus exists regarding use of hemoglobin A1c for diagnosis of diabetes for children. ESTIMATED AVERAGE GLUCOSE (MG/DL) 117 mg/dL [facility] ESTIMATED AVERAGE GLUCOSE (MMOL/L) 6.5 mmol/L [facility] Comment: Test Performed at: [facility] [address] [place] [address] Xander Hill MD Blood 02/14/2025 11:3 2 AM CDT 02/14/2025 11:32 AM CDT Jayda Jimenez MD CHEMISTRY ORDERABLES Final Result [facility] [phone] [address] * (ABNORMAL) LIPID PANEL (02/14/2025 11:32 AM CDT) CHOLESTEROL 185 <200 mg/dL [facility] HDL 57 > OR = 50 mg/dL [facility] TRIGLYCERIDE 81 <150 mg/dL [facility] LDL CALCULATED 111(H) mg/dL (calc) [facility] Comment: Reference range: <100 Desirable range <100 mg/dL for primary prevention; <70 mg/dL for patients with CHD or diabetic patients with > or = 2 CHD risk factors. LDL-C is now calculated using the Brock-Liz calculation, which is a validated novel method providing better accuracy than the Friedewald equation in the estimation of LDL-C. Brock SS et al. JENNIE. 2013;310(38): 7483-5476 (http://education.[employer]/faq/EUA032) CHOL/HDL RATIO 3.2 <5.0 (calc) [facility] NON-HDL CHOLESTEROL 128 <130 mg/dL (calc) [facility] Comment: For patients with diabetes plus 1 major ASCVD risk factor, treating to a non-HDL-C goal of <100 mg/dL (LDL-C of <70 mg/dL) is considered a therapeutic option. Test Performed at: [facility] [place] [address] Xander Hill MD Blood 02/14/2025 11:3 2 AM CDT 02/14/2025 11:32 AM CDT Jayda Jimenez MD CHEMISTRY ORDERABLES Final Result [facility] [phone] [facility] [address] * (ABNORMAL) COMPREHENSIVE METABOLIC PANEL (02/14/2025 11:32 AM CDT) GLUCOSE 62(L) 65 - 99 mg/dL [facility] Comment: Fasting reference interval BUN 18 7 - 25 mg/dL [facility] CREATININE 0.98 0.50 - 1.05 mg/dL [facility] GFR 62 > OR = 60 mL/min/1. 73m2 [facility] BUN/CREAT RATIO SEE NOTE: 6 - 22 (calc) [facility] Comment: Not Reported: BUN and Creatinine are within reference range. SODIUM 141 135 - 146 mmol/L [facility] POTASSIUM 4.8 3.5 - 5.3 mmol/L [facility] CHLORIDE 105 98 - 110 mmol/L [facility] CO2 26 20 - 32 mmol/L [facility] CALCIUM 9.5 8.6 - 10.4 mg/dL [facility] TOTAL PROTEIN 7.0 6.1 - 8.1 g/dL [facility] ALBUMIN 4.2 3.6 - 5.1 g/dL [facility] GLOBULIN 2.8 1.9 - 3.7 g/dL (calc) [facility] ALBUMIN/GLOBULIN RATIO 1.5 1.0 - 2.5 (calc) [facility] BILIRUBIN TOTAL 0.3 0.2 - 1.2 mg/dL [facility] ALKALINE PHOSPHATASE 77 37 - 153 U/L [facility] AST 23 10 - 35 U/L [facility] ALT 13 6 - 29 U/L [facility] Comment: Test Performed at: [facility] [address] [facility] [address] Xander Hill MD Blood 02/14/2025 11:3 2 AM CDT 02/14/2025 11:32 AM CDT us Jadya Jimenez MD CHEMISTRY ORDERABLES Final Result [facility] [phone] [facility] [address] [place] [address] from Last 3 Months Additional Health Concerns Active Problems Noted Date Diagnosed Date Autogenerated Problem 04/15/2025 Insurance MEDICARE PART A AND B Advance Directives For more information, please contact: [phone] * Full Code (Latest Code Status on File) Date Activated Date Inactivated Comments 12/21/2021 11:49 AM 12/21/2021 3:52 PM * Full Code Date Activated Date Inactivated Comments 12/21/2021 10:23 AM 12/21/2021 11:49 AM Care Teams Retail Sales Professional Relationship Specialty Start Date End Date Jayda Jimenez MD [address] [place] [phone] PCP - General Family Practice 02/14/25
--- OUTSIDE RECORDS SUMMARY | 2025-05-17 16:52 | XMS_ITS | Encounter Summary ---
Author Organization [facility] Address [address] [place] [address] Care Team Providers Care Geospatial Systems Integrator Name Role Phone Johnna Rod Primary Care Provider [phone] Reason for Referral * Radiology Services (Routine) - Closed Specialty Diagnoses / Procedures Referred By Nicholas albright Referred To Contact Diagnoses Abnormal ultrasound Elevated liver enzymes Procedures US ABDOMEN LIMITED Livan Bach DO [address] [address] Phone: tel: fax: Referral ID Status Reason Start Date Expiration Date Visits Re quested Visits Authorized [id number] Closed 04/30/2020 05/31/2021 1 1 Encounter Details Date Type Department Care Team (Late st Contact Info) Description 04/30/2020 Ancillary Orders [facility] [place] 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 No / Unsure 04/30/2020 9:01 AM CDT documented as of this encounter Plan of Treatment Not on file documented as of this encounter Results * US ABDOMEN LIMITED (04/30/2020 2:16 PM CDT) Anatomical Region Laterality Modality Abdomen Ultrasound 04/30/2020 2:16 PM CDT Impressions 05/01/2020 9:38 AM CDT IMPRESSION: Please see below. Exam: US ELASTOGRAPHY, US ABDOMEN LIMITED Date/Time of Exam: 04/30/2020 2:17 PM Reason For Exam: See Diagnosis. Diagnosis: Abnormal ultrasound; Elevated liver enzymes. Comparison: None. Findings: Pancreas: The parenchyma is homogeneous without evidence of a discrete mass. Liver: The parenchyma is homogeneous without evidence of a discrete mass. Extrahepatic Bile Ducts: The common duct is normal measuring 4.7 mm in diameter. Gallbladder: There is no evidence of intraluminal calculi. The gallbladder wall is normal in thickness measuring 2.5 mm. Positive Wilcox's sign: No Right Kidney: The right kidney measures 9.2 cm in length. There is renal cortical thinning. There is a small suspected cortical cyst within the superior pole measuring up to 0.8 cm. Ascites: None. Additional Findings: There is a small suspected right pleural effusion. Elastography parameters: Velocity: 1.6 Metavir Score: F1 Liver Fibrosis Staging: Normal-Mild IQR Median/Ratio: 13.1 IMPRESSION: 1. Normal sonographic appearance of the liver with Elastography parameters as above. 2. Right renal cortical thinning with small suspected cortical cyst. 3. Small suspected right pleural effusion. REQUIRED REFERENCE DATA FOR [facility] DataE10 CARTS: Velocity Metavir Score Liver Fibrosis Staging <1.35 m/s F0 Normal 1.35-1.66 m/s F1 Normal -Mild 1.66-1.77 m/s F2 Mild-Moderate 1.77-1.99 m/s F3 Moderate-Severe >1.99 m/s F4 Cirrhosis [id number] Narrative Procedure Note Buck Field DO - 05/01/2020 IMPRESSION: Please see below. Exam: US ELASTOGRAPHY, US ABDOMEN LIMITED Date/Time of Exam: 04/30/2020 2:17 PM Reason For Exam: See Diagnosis. Diagnosis: Abnormal ultrasound; Elevated liver enzymes. Comparison: None. Findings: Pancreas: The parenchyma is homogeneous without evidence of a discrete mass. Liver: The parenchyma is homogeneous without evidence of a discrete mass. Extrahepatic Bile Ducts: The common duct is normal measuring 4.7 mm in diameter. Gallbladder: There is no evidence of intraluminal calculi. The gallbladder wall is normal in thickness measuring 2.5 mm. Positive Wilcox's sign: No Right Kidney: The right kidney measures 9.2 cm in length. There is renal cortical thinning. There is a small suspected cortical cyst within the superior pole measuring up to 0.8 cm. Ascites: None. Additional Findings: There is a small suspected right pleural effusion. Elastography parameters: Velocity: 1.6 Metavir Score: F1 Liver Fibrosis Staging: Normal-Mild IQR Median/Ratio: 13.1 IMPRESSION: 1. Normal sonographic appearance of the liver with Elastography parameters as above. 2. Right renal cortical thinning with small suspected cortical cyst. 3. Small suspected right pleural effusion. REQUIRED REFERENCE DATA FOR [facility] DataE10 CARTS: Velocity Metavir Score Liver Fibrosis Staging <1.35 m/s F0 Normal 1.35-1.66 m/s F1 Normal -Mild 1.66-1.77 m/s F2 Mild-Moderate 1.77-1.99 m/s F3 Moderate-Severe >1.99 m/s F4 Cirrhosis [id number] us Livan Bach DO US ORDERABLES Final R esult documented in this encounter Visit Diagnoses Diagnosis Abnormal ultrasound Other nonspecific (abnormal) findings on radiological and other examinations of body structure Elevated liver enzymes Nonspecific elevation of levels of transaminase or lactic acid dehydrogenase (LDH) Abnormal ultrasound Other nonspecific (abnormal) findings on radiological and other examinations of body structure Elevated liver enzymes Nonspecific elevation of levels of transaminase or lactic acid dehydrogenase (LDH) documented in this encounter Care Teams Geospatial Systems Integrator Relationship Specialty Start Date End Date Johnna Rod FNP PCP - General Nurse Practitioner Family 10/14/20 documented as of this encounter
--- OUTSIDE RECORDS SUMMARY | 2025-05-17 16:52 | XMS_ITS | Clinical Summary ---
Author Organization [facility] [employer] Address [address] [place] [address] Phone Care Team Providers Care Cutting Department Supervisor Name Role Phone Unavailable Primary Care Provider Unavailabl e Social History Tobacco Use Types Packs/Day Years Used Date Smoking Tobacco: Never Assessed Comments Unknown Sex and Gender Information Value Date Recorded Sex Assigned at Not on file Legal Sex Female 12:37 PM EST Gender Identity Not on file Sexual Orientation Not on file Plan of Treatment Upcoming Encounters Date Type Department Care Team (Late st Contact Info) Description 06/05/2025 10:30 AM FUND RAISER Office Visit [facility] [address] [place] [address] Francois Leonard MD [address] [facility] [address] [place] [phone] Health Maintenance Due Date Last Done Comments Breast Cancer Screening 1955 Pneumococcal Vaccine: 50+ Ye ars (1 of 2 - PCV) 1974 Colorectal Cancer Screening: Annual FOBT 2004 Colorectal Cancer Screening: Colonoscopy 2004 Colorectal Cancer Screening: Sigmoidoscopy 2004 Influenza Vaccine (#1) 2025 Diabetes: Hemoglobin A1C 03/26/2025 Diabetes: Ophthalmology Exam 03/26/2025 Diabetes: Pedal Pulse Checked 03/26/2025 Diabetes: Sensory Foot Exam 03/26/2025 Diabetes: Visual Foot Exam 03/26/2025 Hepatitis B Vaccine Aged Out No longe r eligible based on patient's age to complete this topic Insurance Medicare
--- OUTSIDE RECORDS SUMMARY | 2025-05-17 16:53 | XMS_ITS | Encounter Summary ---
Author Organization [facility] Address [address] [place] [address] Care Team Providers Care Oracle Bpm Developer Name Role Phone Johnna Rod Primary Care Provider [phone] Encounter Details Date Type Department Care Team (Late st Contact Info) Description 03/17/2003 Outpatient Historical [facility] Karl Neumann MD [address] [facility] [address] [place] [address] UNSP ABNORMAL MAMMOGRAM (Primary Dx) Social History Tobacco Use Types Packs/Day Years Used Date Smoking Tobacco: Never Assessed Comments Unknown Sex and Gender Information Value Date Recorded Sex Assigned at Not on file 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
--- OUTSIDE RECORDS SUMMARY | 2025-05-17 16:53 | XMS_ITS | Encounter Summary ---
Author Organization [facility] Address [address] [place] [address] Care Team Providers Care Mine Captain Name Role Phone Johnna Rod Primary Care Provider [phone] Encounter Details Date Type Department Care Team ([facility] st Contact Info) Description 02/19/2003 Outpatient [facility] [address] [address] Karl Neumann MD [address] [facility] [address] [place] [address] SCREENING MAMM-MAILG NEOPL-OTHER (Primary Dx) Social History Tobacco Use Types Packs/Day Years Used Date Smoking Tobacco: Never Assessed Comments Unknown Sex and Gender Information Value Date Recorded Sex Assigned at Not on file 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
--- OUTSIDE RECORDS SUMMARY | 2025-05-17 16:53 | XMS_ITS | Encounter Summary ---
Author Organization [facility] Address [address] [place] [address] Care Team Providers Care Front End Software Engineer Name Role Phone Johnna Rod Primary Care Provider Encounter Details Date Type Department Care Team (Late st Contact Info) Description 02/19/2003 Outpatient [facility] [address] [facility] [address] [place] [address] Marissa Gilman MD NO ADDRESS ON FILE SCREENING MAMM-MAILG NEOPL-OTHER (Primary Dx) Social History Tobacco Use Types Packs/Day Years Used Date Smoking Tobacco: Never Assessed Comments Unknown Sex and Gender Information Value Date Recorded Sex Assigned at Not on file 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
--- OUTSIDE RECORDS SUMMARY | 2025-05-17 16:54 | XMS_ITS | Encounter Summary ---
Author Organization [employer] [facility] Address [address] [place] [address] Care Team Providers Care Clam Shucking Machine Tender Name Role Phone Johnna Rod Primary Care Provider Encounter Details Date Type Department Care Team (Late st Contact Info) Description 02/18/2003 Outpatient Historical [facility] Sayda Gao, LOOK OUT TOWER FIRE WATCHER [address] [place] [address] Social History Tobacco Use Types Packs/Day Years Used Date Smoking Tobacco: Never Assessed Comments Unknown Sex and Gender Information Value Date Recorded Sex Assigned at Not on file Legal Sex Female 3:42 AM WIRE INSERTER Gender Identity Not on file Sexual Orientation Not on file documented as of this encounter Plan of Treatment Not on file documented as of this encounter Visit Diagnoses Not on filedocumented in this encounter Care Teams Clam Shucking Machine Tender Relationship Specialty Start Date End Date Johnna Rod FNP PCP - General Nurse Practitioner Family 10/14/20 documented as of this encounter
--- OUTSIDE RECORDS SUMMARY | 2025-05-17 16:54 | XMS_ITS | Encounter Summary ---
Author Organization [employer] [facility] Address [address] [place] [address] Care Team Providers Care Skewer Up Name Role Phone Johnna Rod Primary Care Provider [phone] Encounter Details Date Type Department Care Team (Latest Contact Info) Description 01/05/2006 Outpatient [facility] [address] [place] [address] Dakota Salguero, DO [address] [place] [address] Other Screening Mammogram (Primary Dx) Social History Tobacco Use Types Packs/Day Years Used Date Smoking Tobacco: Never Assessed Comments Unknown Sex and Gender Information Value Date Recorded Sex Assigned at Not on file 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
--- OUTSIDE RECORDS SUMMARY | 2025-05-17 16:54 | XMS_ITS | Encounter Summary ---
Author Organization [facility] Address [address] [place] [address] Care Team Providers Care Genetic Technologist Name Role Phone Johnna Rod Primary Care Provider [phone] Encounter Details Date Type Department Care Team (Late st Contact Info) Description 03/17/2003 Outpatient Historical [facility] [address] [facility] [address] [place] [address] Marissa Gilman MD NO ADDRESS ON FILE SYMPTOMS IN BREAST NEC (Primary Dx) Social History Tobacco Use Types Packs/Day Years Used Date Smoking Tobacco: Never Assessed Comments Unknown Sex and Gender Information Value Date Recorded Sex Assigned at Not on file 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
--- OUTSIDE RECORDS SUMMARY | 2025-05-17 16:54 | XMS_ITS | Encounter Summary ---
Author Organization [facility] Address [address] [place] [address] Care Team Providers Care Protection Analyst Name Role Phone Johnna Rod Primary Care Provider [phone] Reason for Referral * Outpatient Services (Routine) - Closed Specialty Diagnoses / Procedures Referred By Contac t Referred To Contact Diagnoses Right kidney mass Procedures MRA ABDOMEN W CONTRAST Dakota Salguero DO [address] [place] [address] Phone: tel: fax: [facility] Pre-Registration [place] CALL TO MAKE APPOINTMENT ONLY [address] [place] [address] Phone: tel: fax: Referral ID Status Reason Start Date Expiration Date V isits Requested Visits Authorized [id number] Closed F [facility] TO SCHEDULE (S[facility]) 06/20/2013 07/21/2014 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 * Outpatient Services (Routine) - Closed Specialty Diagnoses / Procedures Referred By Contac t Referred To Contact Diagnoses Right kidney mass Procedures MRI ABDOMEN W WO CONTRAST Dakota Salguero DO [address] [place] [address] Phone: tel: fax: Dakota Salguero DO [address] [place] [address] Phone: tel: fax: Referral ID Status Reason Start Date Expiration Date V isits Requested Visits Authorized [id number] Closed [facility] TO SCHEDULE (SGF) 06/20/2013 07/21/2014 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 Encounter Details Date Type Department Care Team (Latest Contact Info) Description 06/20/2013 Ancillary Orders [facility] [address] [place] [address] Dakota Salguero DO [address] [place] [address] Right kidney mass (Primary Dx) Social History Tobacco Use Types Packs/Day Years Used Date Smoking Tobacco: Every Day Cigarettes 1 40 Comments No Sex and Gender Information Value Date Recorded Sex Assigned at Not on file 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 Gender Identity Not on file Sexual Orientation Not on file documented as of this encounter Plan of Treatment Scheduled Orders Name Type Priority Associated Diagnoses Orde r Schedule MRI ABDOMEN W WO CONTRAST Imaging Routine Right kidney mass 1 Occurrences starting 06/20/2013 until 06/20/2014 MRA ABDOMEN W CONTRAST Imaging Routine Right kidney mass 1 Occurrences starting 06/20/2013 until 06/20/2014 documented as of this encounter Visit Diagnoses Diagnosis Right kidney mass- Primary Unspecified disorder of kidney and ureter documented in this encounter Care Teams Protection Analyst Relationship Specialty Start Date End Date Johnna Rod FNP PCP - General Nurse Practitioner Family 10/14/20 documented as of this encounter
--- OUTSIDE RECORDS SUMMARY | 2025-05-17 16:55 | XMS_ITS | Encounter Summary ---
Author Organization [facility] Address [address] [place] [address] Care Team Providers Care Nutrition Intern Name Role Phone Johnna Rod Primary Care Provider [phone] Reason for Referral * Outpatient Services (Routine) - Closed Specialty Diagnoses / Procedures Referred By Nicholas t Referred To Contact Radiology Diagnoses Mass of right kidney Procedures XR IVP W TOMOGRAPHY Dakota Salguero DO [address] [place] [address] Phone: tel: fax: [facility] [address] [place] [address] Phone: tel: fax: Referral ID Status Reason Start Date Expiration Date V isits Requested Visits Authorized [id number] Closed [facility] TO SCHEDULE (SGF) 06/17/2013 07/18/2014 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 Encounter Details Date Type Department Care Team (Latest Contact Info) Description 06/17/2013 Ancillary Orders [facility] Pre-Registration [place] CALL TO MAKE APPOINTMENT ONLY [address] [place] [address] Dakota Salguero DO [address] [place] [address] Mass of right kidney (Primary Dx) Social History Tobacco Use Types Packs/Day Years Used Date Smoking Tobacco: Never Assessed Comments Unknown Sex and Gender Information Value Date Recorded Sex Assigned at Not on file 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 Gender Identity Not on file Sexual Orientation Not on file documented as of this encounter Plan of Treatment Scheduled Orders Name Type Priority Associated Diagnoses Orde r Schedule XR IVP W TOMOGRAPHY Imaging Routine Mass of right kidney 1 Occurrences starting 06/17/2013 until 06/17/2014 documented as of this encounter Visit Diagnoses Diagnosis Mass of right kidney- Primary Unspecified disorder of kidney and ureter documented in this encounter Care Teams Nutrition Intern Relationship Specialty Start Date End Date Johnna Rod FNP PCP - General Nurse Practitioner Family 10/14/20 documented as of this encounter
--- OUTSIDE RECORDS SUMMARY | 2025-05-17 16:55 | XMS_ITS | Encounter Summary ---
Author Organization [facility] Address [address] [place] [address] Care Team Providers Care Photographic Equipment Assembler Name Role Phone Johnna Rod Primary Care Provider Encounter Details Date Type Department Care Team (Late st Contact Info) Description 01/26/2007 Outpatient [facility] [address] [facility] [address] [place] [address] Marissa Gilman MD NO ADDRESS ON FILE Other Screening Mammogram (Primary Dx) Social History Tobacco Use Types Packs/Day Years Used Date Smoking Tobacco: Never Assessed Comments Unknown Sex and Gender Information Value Date Recorded Sex Assigned at Not on file 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
--- OUTSIDE RECORDS SUMMARY | 2025-05-17 16:55 | XMS_ITS | Encounter Summary ---
Author Organization [facility] Address [address] [place] [address] Care Team Providers Care Member Services Representative Name Role Phone Johnna Rod Primary Care Provider [phone] Encounter Details Date Type Department Care Team (Latest Contact Info) Description 02/05/2007 Outpatient [facility] [address] [facility] [address] [place] [address] Franklin Valenzuela MD NO ADDRESS ON FILE Lump or Mass in Breast (Primary Dx) Social History Tobacco Use Types Packs/Day Years Used Date Smoking Tobacco: Never Assessed Comments Unknown Sex and Gender Information Value Date Recorded Sex Assigned at Not on file 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
--- OUTSIDE RECORDS SUMMARY | 2025-05-17 16:55 | XMS_ITS | Encounter Summary ---
Author Organization [employer] [facility] Address [address] [place] [address] Care Team Providers Care Animal Attendants And Trainers Name Role Phone Johnna Rod Primary Care Provider [phone] Encounter Details Date Type Department Care Team (Latest Contact Info) Description 01/26/2007 Outpatient [facility] [address] [place] [address] Dakota Salguero, DO [address] [place] [address] Other Screening Mammogram (Primary Dx) Social History Tobacco Use Types Packs/Day Years Used Date Smoking Tobacco: Never Assessed Comments Unknown Sex and Gender Information Value Date Recorded Sex Assigned at Not on file 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
--- OUTSIDE RECORDS SUMMARY | 2025-05-17 16:55 | XMS_ITS | Encounter Summary ---
Author Organization [employer] [facility] Address [address] [place] [address] Care Team Providers Care Software Developer Name Role Phone Johnna Rod Primary Care Provider [phone] Encounter Details Date Type Department Care Team (Latest Contact Info) Description 02/05/2007 Outpatient [facility] [address] [place] [address] Dakota Salguero, DO [address] [place] [address] Lump or Mass in Breast (Primary Dx) Social History Tobacco Use Types Packs/Day Years Used Date Smoking Tobacco: Never Assessed Comments Unknown Sex and Gender Information Value Date Recorded Sex Assigned at Not on file 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
--- OUTSIDE RECORDS SUMMARY | 2025-05-17 16:55 | XMS_ITS | Encounter Summary ---
Author Organization [facility] Address [address] [place] [address] Care Team Providers Care In Home Sales Representative Name Role Phone Johnna Rod Primary Care Provider Encounter Details Date Type Department Care Team (Late st Contact Info) Description 01/05/2006 Outpatient [facility] [address] [facility] [address] [place] [address] Marissa Gilman MD NO ADDRESS ON FILE Other Screening Mammogram (Primary Dx) Social History Tobacco Use Types Packs/Day Years Used Date Smoking Tobacco: Never Assessed Comments Unknown Sex and Gender Information Value Date Recorded Sex Assigned at Not on file 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
--- NOTE | 2025-05-17 17:21 | W.ED.ANXIETY ---
HPI - Anxiety General: Chief Complaint: Anxiety Stated Complaint: Anxiety Attacks (when it gets dark) Time Seen by Provider: 05/17/25 17:20 History of Present Illness: 69-year-old female presents emergency room with complaints of anxiety. She has been on Xanax 0.5 mg 3 times daily for a number of decades. She recently was without her Xanax for a few days since then she has had several panic attacks feels at times like she cannot breathe she does not have 80 difficulty really she is aware that it is more of a sensation.'s worse when she lays down. She is trying to get ready to have a hip arthroplasty done she has significant enough pain in her hip she can get up and get around. She denies any fever sweats chills productive cough she has no known history of any coronary artery disease or congestive heart failure. Associated symptoms: Deny chest pain, chills or fever(s) Related Data Home Medications ?Medication ?Instructions ?Recorded ?Confirmed acetaminophen 300 mg-codeine 60 mg 1 tab PO Q6H PRN Pain 12/13/19 12/09/24 tablet alprazolam 0.5 mg tablet 0.5 mg PO TID PRN Anxiety 12/13/19 12/09/24 carisoprodol 350 mg tablet (Soma) 350 mg PO BID 12/13/19 12/09/24 diltiazem HCl 360 mg 360 mg PO DAILY 12/13/19 12/09/24 capsule,extended release 24 hr (Cardizem CD) glipizide 5 mg tablet 5 mg PO BID 12/13/19 12/09/24 metformin 1,000 mg tablet 1,000 mg PO BID 12/13/19 12/09/24 zolpidem 10 mg tablet (Ambien) 10 mg PO ONCE PRN insomnia 12/13/19 12/09/24 atorvastatin 80 mg tablet 80 mg PO DAILY 03/07/24 12/09/24 cranberry fruit concentrate 250 mg 250 mg PO TID 03/07/24 12/09/24 chewable tablet (Azo Cranberry) lisinopril 20 mg tablet 20 mg PO DAILY 03/07/24 12/09/24 oxymetazoline 0.05 % nasal spray 2 spray intranasal Q12H PRN 03/07/24 12/09/24 (Mucinex Sinus-Max) Allergy Symptoms semaglutide 1 mg/dose (4 mg/3 mL) 1 mg SUBCUT DIRECTED 03/07/24 12/09/24 subcutaneous pen injector (Ozempic) insulin glargine 100 unit/mL 45 unit SUBCUT DAILY 12/09/24 12/09/24 subcutaneous solution (Lantus U-100 Insulin) Previous Rx's ?Medication ?Instructions ?Recorded cephalexin 250 mg tablet 250 mg PO Q6H 7 days #28 tabs 12/13/24 hydroxyzine HCl 25 mg tablet 25 mg PO Q8H PRN anxiety #10 tabs 05/17/25 Allergies Allergy/AdvReac Type Severity Reaction Status Date / Time No Known Allergies Allergy Verified 12/09/24 11:59 Review of Systems Const: Denies: fever(s) or chills Card: Denies: chest pain Resp: Denies: dyspnea GI: Denies: abdominal pain : Denies: dysuria, urinary frequency or urinary urgency Musc: Denies: neck pain or back pain Skin/Breast: Denies: rash PFSH ED PFSH: Medical History Morbid obesity Diabetes Anxiety Chronic neck and back pain Ordering Provider/Ordering MD: Buck No MD Date of Service: 04/02/21 Procedure(s): XR lumbar spine min 4V 33477 Accession Number(s): [id number] Report Number: [id number] WS: [id number] LUMBAR SPINE TECHNIQUE: 5 views of the lumbar spine CLINICAL INFORMATION: M47.816 - Spondylosis without myelopathy or radiculopathy... COMPARISON: None. FINDINGS: Five [id number] lumbar vertebral bodies. Grade 1 anterolisthesis L4 on L5 measuring 6.3 mm. Disc space narrowing worse at L5-S1. Suggestion of bilateral pars defects with sclerosis L5-S1. Disc space narrowing worse at L4-L5 and L5-S1. Aortic calcification. Disc space heights are otherwise well preserved. No compression fractures. XR/XR lumbar spine min 4V 98000 IMPRESSION: 1. Grade 1 anterolisthesis L4 on L5 measuring 6.3 mm. 2. Disc space narrowing worse L4-L5 and L5-S1. 3. No acute compression fractures. 4. Suggestion of bilateral pars defects L5-S1 with sclerosis. Dictated By:Darwin Dave MDSigned By:Darwin Dave MDSigned Date/Time:04/02/21 1316DD/ 1307 Insomnia Hypertension Hyperlipidemia Surgical History History of tonsillectomy H/O cystoscopy with kidney stone removal Family History Father Cancer lung/brain Hypertension Denies family history of Anesthesia complication Bleeding disorder Social History Smoking and tobacco/nicotine status: former use of tobacco/nicotine Alcohol intake: never Substance/Drug Use: never Household members: spouse Marital status: Physical Exam Const: COMMON NORMALS: no acute distress GENERAL APPEARANCE: cooperative and comfortable ORIENTATION/CONSCIOUSNESS: Yes awake, Yes oriented to person, Yes oriented to place and Yes oriented to time HENMT: COMMON NORMALS: normocephalic, atraumatic and hearing grossly normal bilaterally HEAD & SCALP: normocephalic and atraumatic Resp: COMMON NORMALS: normal respiratory effort, No retractions, No use of accessory muscles and clear to auscultation bilaterally AUSCULTATION: clear to auscultation bilaterally Cardio: COMMON NORMALS: regular rate, regular rhythm and No murmurs present (Cardio) RATE: regular rate RHYTHM: regular rhythm GI: COMMON NORMALS: Soft to palpation and No hepatosplenomegaly present AUSCULTATION: Yes normoactive bowel sounds PALPATION: Yes Soft to palpation, No Tenderness to palpation present (GI), No Guarding due to palpation present (GI) and Yes No hepatosplenomegaly present Extremity: COMMON NORMALS: normal to inspection, capillary refill normal and no calf tenderness NARRATIVE EXTREMITY EXAM: 1+ edema lower extremities Neuro: SENSORIUM/ORIENTATION: Yes oriented to person, Yes oriented to place and Yes oriented to time Skin: COMMON NORMALS: no rashes or lesions noted GENERAL SKIN EXAM: no rashes or lesions noted Course Vital Signs: Vital signs: Vital Signs Temperature 97.4 F L 05/17/25 16:47 Pulse Rate 84 05/17/25 16:47 Respiratory Rate 20 H 05/17/25 16:47 Blood Pressure 180/81 05/17/25 16:47 Pulse Oximetry 97 05/17/25 16:47 Oxygen Delivery Me thod Room Air 05/17/25 16:47 MDM - Anxiety Medical Decision Making Anxiety improved. There is no sign of any other causes for shortness of breath her lungs are clear she has not been ill or to a productive cough. Will discharge her home gave her prescription for hydroxyzine to use 25 mg 1 every 8 hours as needed she has an appoint with her doctor to discuss long-term strategies for anxiety controlled on Monday Medical Records I reviewed the patient's medical records. No radiology studies performed this visit Discharge Plan Discharge Patient Disposition: Home Clinical Impression: Acute anxiety Condition: Stable Prescriptions: New hydroxyzine HCl 25 mg tablet 25 mg PO Q8H PRN (Reason: anxiety) Qty: 10 0RF No Action acetaminophen-codeine 300-60 mg tablet 1 tab PO Q6H PRN (Reason: Pain) zolpidem [Ambien] 10 mg tablet 10 mg PO ONCE PRN (Reason: insomnia) glipizide 5 mg tablet 5 mg PO BID metformin 1,000 mg tablet 1,000 mg PO BID carisoprodol [Soma] 350 mg tablet 350 mg PO BID alprazolam 0.5 mg tablet 0.5 mg PO TID PRN (Reason: Anxiety) diltiazem HCl [Cardizem CD] 360 mg capsule,extended release 24hr 360 mg PO DAILY atorvastatin 80 mg tablet 80 mg PO DAILY lisinopril 20 mg tablet 20 mg PO DAILY oxymetazoline [Mucinex Sinus-Max] 0.05 % spray,non-aerosol 2 spray intranasal Q12H PRN (Reason: Allergy Symptoms) Azo Cranberry 250 mg tablet,chewable 250 mg PO TID Ozempic 1 mg/dose (4 mg/3 mL) pen injector 1 mg SUBCUT DIRECTED insulin glargine [Lantus U-100 Insulin] 100 unit/mL solution 45 unit SUBCUT DAILY cephalexin 250 mg tablet 250 mg PO Q6H 7 Days Qty: 28 0RF Discharge Orders: Discharge ED (Routine); Ordered 05/17/25 Ordered By: Vu Regan Referrals: Jayda Jimenez MD [Primary Care Provider, Family Practice] Discharge Diet: Usual diet Discharge Activity: Resume usual activity Patient Instructions: Opioid Safety, Pain Management, Patient Portal & Melissa Instructions Activity Restrictions/Additional Instructions: Thank you for choosing [facility] for your healthcare needs today. It is very important that you follow up as instructed or that you return to the Emergency Department should you have concerns or if your condition changes or worsens in any way. Emergency department visits are focused on emergent conditions, in some cases you may require further evaluation on an outpatient basis. You were seen in the emergency room with complaints of anxiety. You are given 1 dose of Ativan in the emergency room will discharge home with hydroxyzine to use 1 every 8 hours as needed you can use this in addition to your Xanax if the Xanax is not working. Recommend that you follow-up with your primary care doctor to discuss strategies for managing your anxiety going forward. (Please note that included in your discharge packet is information concerning opioid safety and pain management. This information is given to all patients were discharged from the ER regardless of their discharge diagnosis or the medicines they usually take or are prescribed.) Print Language: Citizen Of [place] Coding Level of Care Code ED Bale [employer] Machine Operator for Estefany Aldana
[2025-05-17] MEDS: LORazepam 2 mg/mL INJ 1 mL 1 MG IM (17:46)
[2025-05-17 17:59] VITALS: PULSE 72; O2SAT 99
== END 2025-05-17 18:01 | disposition home or self-care (01) ==
PROVIDERS: Emergency Provider Family Medicine; PCP Family Medicine
DX: F41.8 Other specified anxiety disorders (principal); Z79.4 Long term (current) use of insulin; Z79.84 Long term (current) use of oral hypoglycemic drugs; Z87.891 Personal history of nicotine dependence; E78.5 Hyperlipidemia, unspecified; I10 Essential (primary) hypertension; E11.9 Type 2 diabetes mellitus without complications
CPT/HCPCS: 96372; 99284; J2060